=== PATIENT | female | born 1985 | race African-American/Black ===

== ENCOUNTER 2020-11-16 08:00 | Inpatient (IN) | payer OTHER, SELFPAY ==
[2020-11-16] VITALS (24 sets, daily range): BP systolic 98–127; BP diastolic 56–81; PULSE 72–93; RESP 16–20; TEMP 36.1–37.1; O2SAT 96–100; BMI 32.9
[2020-11-16 07:56] LABS: ROM Internal Control Test YES-OK TO RESULT pt. (Internal QC)
[2020-11-16 07:57] LABS: ROM Patient Test POSITIVE (Negative)
[2020-11-16] MEDS: Lactated Ringers 1,000 ML 999 ML IV (08:10)
[2020-11-16 08:36] LABS: Absolute Lymphocyte Count 1.34 X10^3/uL (0.83-4.51); Absolute Neutrophil Count 4.5 X10^3/uL (2.0-7.7); Basophil# 0.03 X10^3/uL; Basophil% 0.4 % (0-1); Eosinophil# 0.09 X10^3/uL; Eosinophils% 1.3 % (0-5); Hematocrit 30.1 % (37-47); Lymphocyte # 1.34 X10^3/ul (0.83-4.51); Mean Corp Hgb Conc 33.2 g/dL (32-36); Mean Corpuscular Hgb 30.1 pg (27.0-32.0); Mean Corpuscular Volume 90.7 fL (81-99); Mean Platelet Vol. 10.1 fl (6.2-12.0); Monocyte# 0.65 X10^3/uL; Monocyte% 9.7 % (0-10); NRBC Flagged by Analyzer 0 % (0-5); Neutrophil # 4.52 X10^3/uL (2.7-7.7); Neutrophil % 67.6 % (47-70); Platelet Count 243 K/mm3 (150-450); RBC Distribution Width CV 15.4 % (11.6-14.6); RBC Distribution Width SD 50.4 fl (35.1-43.9); Red Blood Count 3.32 M/mm3 (4.2-5.4); White Blood Count 6.7 K/mm3 (4.4-11.0)
[2020-11-16 08:45] LABS: Amphetamine Urine VISTA NEGATIVE (<1000 ng/mL); Barbiturate Urine VISTA NEGATIVE (< 200 ng/mL); Benzodiazepine Urine VISTA NEGATIVE (< 200 ng/mL); Cocaine Urine VISTA NEGATIVE (< 300 ng/mL); Ecstacy Urine VISTA NEGATIVE (< 500 ng/mL); Methadone Urine VISTA NEGATIVE (< 300 ng/mL); PCP Urine VISTA NEGATIVE (< 25 ng/mL); THC Urine VISTA NEGATIVE (< 50 ng/mL); Vista UDS pH Range 6
[2020-11-16] MEDS: Acetaminophen 500 MG Tablet 1000 MG PO ×3 (09:04→22:21)
[2020-11-16] MEDS: Sodium Citrate/Citric Acid 30 ML UDC PO (09:04)
[2020-11-16] MEDS: Cefazolin 2 GM in 0.9% Normal Saline 100 ML IV (09:15)
--- NOTE | 2020-11-16 09:36 | FALS_PTH ---
PATIENT: JANET GARCIA LOC: [facility] U#:[id number] AGE/SX: 35/F ROOM: [facility] RE11/16/[address]: Dr. Sara Briceno, MDDOB: 1985 BED: 1 DIS: 11/19/2020 SPEC #: [id number] RECD: 11/16/20 12:17 STATUS: STEPHEN AD #: [id number] CATA: 11/16/20 09:[address]: Sara Briceno DEPT: SURGICAL PATHOLOGY RECD BY: Julia Pizarro Tissues: Fallopian tube Procedures: Surgery Specimen Level II HEADER OPERATION: Tubal ligation PRE-OP DIAGNOSIS: Sterilization TISSUE SUBMITTED: Fallopian tubes, suture in right tube MICROSCOPIC DIAGNOSIS Right fallopian tube, salpingectomy: Complete segment of fallopian tube with no pathologic change. Left fallopian tube, salpingectomy: Complete segment of fallopian tube with no pathologic change. AM:mayo 11/17/2020 MICROSCOPIC DESCRIPTION Slides are reviewed. GROSS DESCRIPTION Received in fixative is one container labeled with the patient's name and designated bilateral fallopian tubes. The specimen consists of bilateral fallopian tubes including fimbrial ends. The right fallopian tubes with suture measures 7 cm in length and up to 0.6 cm in diameter and the left fallopian tube without suture measures 8 cm in length and 0.6 cm in diameter. Sections reveal unremarkable cut surfaces. Cut Out And Marking Machine Operator sections are submitted in two cassettes as follows: 1 - right fallopian tube, 2 - left fallopian tube. / SJ:mayo 11/16/20 TC:4 CPT: 77293 x2
--- NOTE | 2020-11-16 10:27 | OP.PCM_ITS ---
Assessment & Plan (1) Delivery by section: (2) Encounter for sterilization: Maternal Data Information Final JOHN: 11/24/20 Final JOHN Source: US <20 weeks Gestational age: 38.6 Details Operative Information Date of Procedure: 11/16/20 Pre-Operative Diagnosis: term gestation, SROM, previous c/s, desires sterilizaiton Post-Operative Diagnosis: same, live female infant Indications for : Repeat Elective Indications Narrative: SROM at home Classification: ADALBERTO Procedure Type: bilateral salpingectomy digital field service technician #1: Chiara Kumar Type of Anesthesia: Spinal Antibiotic Given: Ancef 2 grams IV x1 Drain: Frank to straight drain Estimated Blood Loss: 650 Fluids Replaced: 1100 Procedure Start Time: 09:32 Procedure Stop Time: 10:25 Time of Delivery: :36 Findings Description of Procedure: After informed consent was obtained the patient was taken to the operating room she was given spinal anesthesia. she was placed in the supine position. She was then prepped and draped in normal sterile fashion. Once spinal anesthesia was found to be adequate skin incision was made with a scalpel in a Pfannenstiel fashion. It was carried down to the underlying layer of the fascia. Fascia was then incised midline with scapel and extended laterally using curved koo. 2 straight Iker's were placed in the superior aspect of the fascial edge and the rectus muscles were dissected off sharply. Attention was then turned to the inferior aspect where again the fascial edge was grasped with 2 straight [place] clamps tented up and the rectus muscle dissected off sharply. At this time the rectus muscles were bluntly. Using blunt force the peritoneum was then entered. Metzenbaums were used to take down the rectus muscles inferiorly as well as the peritoneum. At this time the vesicouterine peritoneum was identified. Uterine incision was made in a low transverse fashion with the scalpel and then entered bluntly. Gentle opposing traction was placed to extend the uterine incision. The membranes were noted to be fluid clear. Infant's head was then brought to the uterine incision was delivered atraumatically followed by the rest 's body. At this time delayed cord clamping was performed mouth nose were suctioned. Infant was then handed to the waiting nursery team. The placenta was then removed with gentle traction. The uterus was removed from the intra-abdominal cavity is wrapped in a moist lap. it was cleared of all clots and debris using a moist lap. Ring clamps were placed on the uterine angles. #1 Vicryl suture was used in a running locked fashion for the first layer. second layer using #1 vicryl in figure of eight fashion. The Left adnexa and broad ligatment contined larged tortuous vessels with enlarged ovary but no demonstarted cyst. Right side appeared normal. Uterus was enlarged with palpable fibroids. At this time then the uterus was placed back into abdominal cavity uterine incision was evaluated and noted to be of good hemostasis. The tubes were grasped in an avascular area with the [place] and ligasure used to coagulate and ligated along mesosalpinx to removed both tubes completely. Great hemostasis was appreciated at this time the uterine incision was again evaluated good hemostasis was appreciated. VIPIN placed. The peritoneum was grasped with Kellys. Peritoneum and muscle were reapproximated using #2 Vicryl suture in a running fashion. Vipin placed over muscle. The fascia was then reapproximated using #1 PDS in a running fashion. Subcutaneous layer was evaluated and Bovie was used for any small oozing that was noted per #2-0 plain gut suture was then used to reapproximate the subcutaneous layer 4-0 monocryl was used to reapproximate the skin in a subcutaneous fashion. Dry sterile dressing was applied. Instrument lap needle count were correct ?2. Anticipated normal postoperative course for this patient . Presentation: Positive for Vertex Amniotic Membrane Rupture Type: Spontaneous Amniotic Fluid Description: Clear Placental Delivery Description: Manual Removal Placenta Disposition: [facility] Specimen(s) Sent to Pathology: none Cord Vessel Description: 3 Vessels Cord Entanglement: None Infant A Gender: Female (1 minute): 8 (5 minute): 9 Delayed Cord Clamping: Yes Complications Risks of Surgery Discussed w/Patient: Bleeding, Anesthesia Risks, Infection, Need for Future C-Sections, Permanency, Failure Rate of 1 to 2%, Injury to surrounding structure(s) including bowel and bladder and Availability of other non-permanent control options Complications: none Admit VTE Documentation VTE Present on Admission: Yes VTE Mechan Device Prophylaxis: SCD's VTE Pharm Prophylaxis Ordered: Yes
--- NOTE | 2020-11-16 10:35 | PCM.HP.OB ---
HPI - General General Date of Admission: 11/16/20 HPI Narrative JANET GARCIA, is a 35 F @ 38.6 weeks who presents with srom- scheduled cs tomorrow 11/17/20 Maternal Data Information Final JOHN: 11/24/20 Final JOHN Source: US <20 weeks Gestational age: 38.6 [facility] Medical History (Updated 11/16/20 @ 10:[address] Sara Briceno MD) ADD (attention deficit disorder) Anemia Anxiety Bipolar disorder (manic depression) Depression HSV (herpes simplex virus) infection Home Medications PNV no.[id number] [ Gummies] 2 tab PO DAILY 11/16/20 [History Last Taken 11/15/20 22:00 2 gummies] acyclovir 400 mg PO TID 11/16/20 [History Last Taken 11/16/20 05:00 400 mg] aspirin [Baby Aspirin] 81 mg PO DAILY 11/16/20 [History Last Taken 10/19/20] omeprazole magnesium [Prilosec OTC] 20 mg PO DAILY 11/16/20 [History Last Taken 11/16/20 05:00 20 mg] Allergy/AdvReac Type Severity Reaction Status Date / Time chocolate flavor Allergy Upset Verified 11/16/20 07:51 Stomach milk Allergy Upset Verified 11/16/20 07:50 Stomach Family History (Updated 11/16/20 @ 08:46 by Zara Peña) Father CVA (cerebral vascular accident) Mother Cancer Grandmother Cancer Grandmother Alcoholism Father Alcoholism Mother Alcoholism Surgical History (Updated 11/16/20 @ 10:[address] Sara Briceno MD) History of surgery Social History Smoking Status: Former smoker History Elective abortions Hx Para 1 Spontaneous abortions Hx # Term Pregnancies Ectopic pregnancies Hx # Pregnancies Multiple births # of living children Vital Signs Vital Signs Vital Signs: 11/16/20 07:39 11/16/20 07:40 11/16/20 08:53 Temperature 98.4 F 98.2 F Temperature Source Temporal Temporal Pulse Rate 80 93 Respiratory Rate 18 Blood Pressure 127/71 H 122/76 H Blood Pressure Mean 91 BP Systolic 127 BP Diastolic 71 Blood Pressure Source Monitor Blood Pressure Position Semi-Fowlers Blood Pressure Location Left Arm Pulse Ox 99 99 Oxygen Delivery Method Room Air 11/16/20 08:55 11/16/20 08:56 Temperature Temperature Source Pulse Rate 89 Respiratory Rate Blood Pressure 122/76 H Blood Pressure Mean BP Systolic 122 BP Diastolic 76 Blood Pressure Source Blood Pressure Position Blood Pressure Location Pulse Ox 100 Oxygen Delivery Method Weight Weight: 84.3 kg Body Mass Index (BMI) 32.9 Physical Exam Const alert and oriented x3 General Appearance: cooperative HEENT normocephalic GI GI Narrative: Gravid, non tender to palpation. OB / External & Speculum: external exam normal Extremity normal to inspection Skin no rashes or lesions noted Neuro oriented x3 and CN's II-XII intact bilaterally Psych Appearance: grossly normal Labs Labs Labs: Blood Type A POSITIVE Antibody Screen NEGATIVE Hct 30.1 % (37-47) L Hgb 10.0 g/dL (12.0-15.0) L Assessment & Plan (1) PROM (premature rupture of membranes): (2) 38 weeks gestation of : (3) History of delivery: PLAN: admit to L&D plan for repeat cs today with bilateral salpingectomy OR staff notified
[2020-11-16] MEDS: Oxytocin 30 units/NS 500 ml 30 UNITS/500 ML IV.SOLN 167 UNITS IV (11:05)
[2020-11-16] MEDS: Ketorolac 30 MG/ML Syringe IM ×3 (11:45→23:37)
[2020-11-16 12:18] LABS: Pathology Specimen OB SEE PATHOLOGY REPORT
[2020-11-16] MEDS: Ondansetron 4 MG/2 ML Vial IV (12:55)
[2020-11-16] MEDS: Lactated Ringers 1,000 ML 100 ML IV (14:15)
--- NOTE | 2020-11-16 16:23 | CASEMGMT ---
Social Work Labor and Delivery Unit Consult received for maternal history of marijuana use, mental health history and social history. MOB delivered infant today via section. Will plan to see MOB for consult on 11/17/2020. -ELISEO Garduno, DEFENSIVE SECONDARY COACH
--- NOTE | 2020-11-16 16:33 | NURSING ---
1600- sleeping well, not disturbed. no s/sx of distress
[2020-11-16] MEDS: Enoxaparin 40 MG/0.4 ML Syringe SC (22:21)
[2020-11-16] MEDS: 0.9% Saline Lock 10 ML Syringe IV (23:38)
[2020-11-17] MEDS: Acetaminophen 500 MG Tablet 1000 MG PO ×4 (03:56→21:45)
[2020-11-17 03:57] VITALS: BP 107/46; PULSE 77; RESP 18; TEMP 36.7; O2SAT 98
[2020-11-17] MEDS: 0.9% Saline Lock 10 ML Syringe IV (06:18)
[2020-11-17] MEDS: Ketorolac 30 MG/ML Syringe IM (06:18)
[2020-11-17 06:42] LABS: Hematocrit 27.5 % (37-47); Mean Corp Hgb Conc 32.7 g/dL (32-36); Mean Corpuscular Hgb 30.2 pg (27.0-32.0); Mean Corpuscular Volume 92.3 fL (81-99); Mean Platelet Vol. 9.1 fl (6.2-12.0); Platelet Count 192 K/mm3 (150-450); RBC Distribution Width CV 15.3 % (11.6-14.6); RBC Distribution Width SD 51.1 fl (35.1-43.9); Red Blood Count 2.98 M/mm3 (4.2-5.4); White Blood Count 8.3 K/mm3 (4.4-11.0)
[2020-11-17 10:30] VITALS: BP 106/57; PULSE 92; RESP 18; TEMP 36.9; O2SAT 97
[2020-11-17] MEDS: Senna/Docusate Sodium 1 Tablet PO (11:07)
[2020-11-17] MEDS: Ibuprofen 600 MG Tablet PO ×3 (12:16→22:51)
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
--- NOTE | 2020-11-17 13:29 | PCM.PN.OB ---
Subjective Subjective She reports some abdominal discomfort. Patient is not passing much gas. No BM in over 2 days. Objective Data Objective Data Vital Signs: Vital Signs Temp Pulse Resp BP Pulse Ox 98.5 F 92 18 106/57 L 97 11/17/20 10:30 11/17/20 10:30 11/17/20 10:30 11/17/20 10:30 11/17/20 10:30 Oxygen Delivery Method Room Air Weight: 185 lb 13.595 oz Body Mass Index (BMI) 32.9 Intake & Output: Intake and Output for Last 24 Hours 11/15/20 11/16/20 11/17/20 23:59 23:59 23:59 Intake Total 5180.72 / 5180.72 Output Total 2620 / 2620 1200 / 1200 Balance 2560.72 / 2560.72 -1200 / -1200 Lab / Micro Data Result Diagrams: 11/17/20 06:30 Labs: Laboratory Results - last 24 hr 11/17/20 06:30: WBC 8.3, RBC 2.98 L, Hgb 9.0 L, Hct 27.5 L, MCV 92.3, MCH 30.2, MCHC 32.7, RDW Std Deviation 51.1 H, RDW Coeff of Patrick 15.3 H, Plt Count 192, MPV 9.1 Physical Exam Const alert, oriented x3 and no apparent distress HEENT normocephalic GI soft to palpation GI Narrative: softly distended with minimal tenderness, no rebound or guarding fundus firm, mid & below umbilicus Incision - bandage c/d/i Extremity normal to inspection and no calf tenderness Assessment & Plan (1) Delivery by section: COMMENT: POD#1 PLAN: Heme - HDS. Sickle cell trait with iron deficiency anemia in . Resume iron supplementation. GI - ADAT. Encouraged ambulation to help with flatus. Miralax ordered for constipation. - adequate UOP IF - AF, no signs infection Routine care
[2020-11-17 15:40] VITALS: BP 110/65; PULSE 92; RESP 18; TEMP 36.9; O2SAT 97
--- NOTE | 2020-11-17 17:03 | CASEMGMT ---
Social Work Labor and Delivery Unit Per the mother of baby (MOB) verbal permission this inspector automatic typewriter called [facility] in [place] at [phone]. Carolyne Gonzales is the therapist MOB has been seen. Requested to get MOB an appointment and this inspector automatic typewriter was sent to Carolyne's voicemail due to the patient being in transition. Message left requesting a call back with a follow-up for this patient. Called [facility] children services at [phone]. Spoke with Shobha in the intake department. 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 Additional risk factors including maternal mental health and reports of MOB /intended father to baby having history of THC use. Reported strengths for this family. Brief maternal and histories provided. Children services aware of discharge either Friday or Friday. When reports no reason to hold the family regarding discharge. No callback from [facility] with an appointment for this patient. Presented to MOB room to discuss and complete a crisis safety plan. There are no current thoughts plans or intent regarding suicide at this time however due to patient's history, crisis safety plan being done. Rojas, the MOB and intended father to the baby awake and sitting on the bedside couch. MOB agreeable to having discussion with Rojas present. Completed safety plan with MOB input. Rojas provided input with MOB request. Rojas presented as supportive and acknowledging the support systems that MOB identified as being very helpful to the MOB. Copy of crisis safety plan placed on the MOB chart and original returned back to the MOB. Again, no voiced intent for suicide at this time is future oriented regarding wanting to be present and care for her children. Also places a connection with the therapist at [facility] and desire to continue with counseling. Educated MOB that Carolyne has not called this inspector automatic typewriter back with an appointment. MOB verbally agreed that she can call [facility] herself on Friday and get an appointment. Rojas inquired about potential children services involvement as MOB had mentioned this to Rojas. [facility] [place] this inspector automatic typewriter permission to speak to Rojas freely. Educated Rojas to the reason for her children services referral. Answered Rojas's questions and allowed opportunity for both parents to ask questions as needed. Both ERENDIRA and Rojas were appropriate, pleasant, and cooperative; willing to engage in respectful conversation with this inspector automatic typewriter. MOB affect brighter this afternoon as compared to first visit with this inspector automatic typewriter today. No other services requested at this time. Noted that infant's urine drug screen is negative. Plan: MOB and infant will discharge home when ready for discharge. 1. MOB has been provided with resource packet for [facility] and a mood and anxiety disorder packet. 2. Crisis safety plan has been created and a copy has been placed on the MOB chart. 3. MOB reports intent to follow-up with [facility] on 11/20/2020 to secure her own mental health appointment. 4. Referral has been made to [facility] services. MOB and and Rojas both aware of referral. Per [facility] no reason to hold the family's discharge. 5. Will monitor for meconium drug screen results and make additional referrals as indicated. -ELISEO Garduno, [employer] *Information documented generated via the [employer] system.*
[2020-11-17] MEDS: oxyCODONE 5 MG Tablet PO ×2 (17:09→22:50)
[2020-11-17] MEDS: Polyethylene Glycol 3350 17 GM PACKET PO (17:57)
[2020-11-17 21:43] VITALS: BP 119/65; PULSE 90; RESP 18; O2SAT 98
[2020-11-17] MEDS: Enoxaparin 40 MG/0.4 ML Syringe SC (22:50)
[2020-11-18 00:19] VITALS: BP 109/60; PULSE 91; RESP 18; TEMP 36.9; O2SAT 96
[2020-11-18 03:29] VITALS: BP 100/53; PULSE 87; RESP 18
[2020-11-18] MEDS: Acetaminophen 500 MG Tablet 1000 MG PO ×4 (03:32→23:08)
[2020-11-18] MEDS: Ibuprofen 600 MG Tablet PO ×4 (06:21→23:07)
[2020-11-18 07:30] VITALS: BP 108/53; PULSE 82; RESP 16; TEMP 36.8; O2SAT 98
[2020-11-18] MEDS: Senna/Docusate Sodium 1 Tablet PO (08:54)
[2020-11-18] MEDS: oxyCODONE 5 MG Tablet PO ×2 (08:54→21:25)
[2020-11-18] MEDS: Polyethylene Glycol 3350 17 GM PACKET PO (10:57)
--- NOTE | 2020-11-18 11:42 | PCM.PN.OB ---
Subjective Subjective Pain better today. Passing more flatus. No BM yet. Objective Data Objective Data Vital Signs: Vital Signs Temp Pulse Resp BP Pulse Ox 98.2 F 82 16 108/53 L 98 11/18/20 07:30 11/18/20 07:30 11/18/20 07:30 11/18/20 07:30 11/18/20 07:30 Oxygen Delivery Method Room Air Weight: 185 lb 13.595 oz Body Mass Index (BMI) 32.9 Intake & Output: Intake and Output for Last 24 Hours 11/16/20 11/17/20 11/18/20 23:59 23:59 23:59 Intake Total 5180.72 / 5180.72 Output Total 2620 / 2620 1200 / 1200 Balance 2560.72 / 2560.72 -1200 / -1200 Lab / Micro Data Result Diagrams: 11/17/20 06:30 Physical Exam Const alert, oriented x3 and no apparent distress HEENT normocephalic GI soft to palpation GI Narrative: softly distended with minimal tenderness fundus firm, mid & below umbilicus Incision - bandage c/d/i Extremity normal to inspection and no calf tenderness Assessment & Plan (1) Delivery by section: COMMENT: POD#2 PLAN: Heme - HDS, continue iron GI - miralax again today & encouraged ambulation to pass more flatus & have a BM Routine care & anticipate discharge tomorrow
[2020-11-18 13:12] VITALS: BP 118/65; PULSE 78; RESP 16; TEMP 36.7; O2SAT 97
[2020-11-18] MEDS: Enoxaparin 40 MG/0.4 ML Syringe SC (21:26)
[2020-11-18 21:28] VITALS: BP 126/60; PULSE 87; RESP 18; TEMP 36.9
[2020-11-19 03:05] VITALS: BP 119/68; PULSE 78; RESP 18
[2020-11-19] MEDS: Acetaminophen 500 MG Tablet 1000 MG PO ×2 (05:09→11:34)
[2020-11-19] MEDS: Ibuprofen 600 MG Tablet PO ×2 (05:09→11:34)
[2020-11-19 07:57] VITALS: BP 107/70; PULSE 82; RESP 16; TEMP 36.7; O2SAT 98
[2020-11-19] MEDS: Senna/Docusate Sodium 1 Tablet PO (11:34)
[2020-11-19 11:36] VITALS: BP 117/66; PULSE 80; RESP 16; TEMP 37; O2SAT 97
--- NOTE | 2020-11-19 12:00 | PCM.PN.OB ---
Subjective Subjective Pain is controlled. Passing more flatus but no BM yet. Objective Data Objective Data Vital Signs: Vital Signs Temp Pulse Resp BP Pulse Ox 98.6 F 80 16 117/66 97 11/19/20 11:36 11/19/20 11:36 11/19/20 11:36 11/19/20 11:36 11/19/20 11:36 Oxygen Delivery Method Room Air Weight: 185 lb 13.595 oz Body Mass Index (BMI) 32.9 Intake & Output: Intake and Output for Last 24 Hours 11/17/20 11/18/20 11/19/20 23:59 23:59 23:59 Output Total 1200 / 1200 Balance -1200 / -1200 Lab / Micro Data Result Diagrams: 11/17/20 06:30 Physical Exam Const alert, oriented x3 and no apparent distress HEENT normocephalic GI soft to palpation, non-tender and non-distended GI Narrative: fundus firm, mid & below umbilicus Incision - bandage c/d/i Extremity normal to inspection and no calf tenderness Assessment & Plan (1) Delivery by section: COMMENT: POD#3 PLAN: D/c to home GI - advised on miralax for constipation Heme - continue iron
--- NOTE | 2020-11-19 12:02 | PCM.DC.SUM ---
Providers Date of Admission: 11/16/20 Reason For Visit: REPEAT C SECTION Diagnosis Discharge Diagnosis (1) Delivery by section: Status: Acute (2) History of delivery: Status: Acute Code(s): Z98.891 - History of uterine scar from previous surgery Medications at Discharge Home Medications Gummies 2 tab PO DAILY 11/16/20 acyclovir 400 mg PO TID 11/16/20 omeprazole magnesium [Prilosec OTC] 20 mg PO DAILY 11/16/20 acetaminophen 1,000 mg PO Q6H #0 tab 11/19/20 ibuprofen 600 mg PO Q6H #0 tab 11/19/20 oxycodone 5 mg PO Q8H PRN 4 Days #10 cap 11/19/20 polyethylene glycol 3350 17 g PO DAILY #0 ea 11/19/20 Hospital Course Operations section Procedures None Summary of Care Provided Hospital Course: Heme - HDS. Sickle cell trait with iron deficiency anemia in . Resumed iron supplementation. GI - Patient tolerating regular diet & passing flatus. Miralax for constipation. - adequate UOP IF - AF, no signs infection D/c to [facility] on POD#3 Admitted from 11/16/20 to 11/19/20 Weight / BMI Weight Weight: 185 lb 13.595 oz Body Mass Index (BMI) 32.9 ABG / Lab / Microbiology Data Result Diagrams: 11/17/20 06:30 D/C Instructions Discharge Diet: No restrictions Discharge Activity: May Shower May resume sexual activity in: 6 weeks Weight Bearing Status: Weight bearing as tolerated Call your doctor if your incision/area has: Continuous Slow Oozing, Sudden Increased Bleeding, Increased Pain/ Swelling, Increased Redness, Foul Smelling Discharge and Swelling at the incision site Call your doctor if you observe: Fever of 101 or Higher, Coldness, Increased Pain, Change in Color, Inability to urinate, Inability to have a bowel movement, Using more than 1 pad per hour, Shortness of breath, Dizziness, Fainting spells, Chest pain, Increased palpitations (irregular heartbeat), Calf discomfort and Uncontrolled pain Suture Line Care: Avoid Pulling/Pushing and Avoid Pinching/Bending Remove Dressing in: 1 week Cleanse incision/area with: Soap & Water Please Follow Up With: Eric Denny MD When: Follow up in 2 and 6 weeks for visits. Meaningful Use Info Meaningful Use Diagnoses (Choose all that apply): None applicable Discharge Plan Admission Admit Date/Time: 11/16/20 08:00 Primary Reason for Your Visit: section with bilateral salpingectomy for tubal sterilization Attending Provider: Sara Briceno Discharge Orders/Prescriptions Prescriptions: New acetaminophen 500 mg Tablet 1,000 mg PO Q6H Qty: 0 RF: 0 polyethylene glycol 3350 17 gram Powder In Packet 17 g PO DAILY Qty: 0 RF: 0 ibuprofen 600 mg Tablet 600 mg PO Q6H Qty: 0 RF: 0 oxycodone 5 mg capsule 5 mg PO Q8H PRN (Reason: pain) 4 Days Qty: 10 RF: 0 Continued acyclovir 400 mg Tablet 400 mg PO TID RF: 0 omeprazole magnesium [Prilosec OTC] 20 mg Tablet,Delayed Release (Dr/Ec) 20 mg PO DAILY RF: 0 Gummies 400 mcg-35 mg- 25 mg-5 mg Tablet,Chewable 2 tab PO DAILY RF: 0 Discontinued aspirin [Baby Aspirin] 81 mg Tablet,Chewable 81 mg PO DAILY RF: 0 Disposition Disposition (needs filled in before D/C Order can be placed): Home, Self Care
--- NOTE | 2021-01-15 12:35 | CASEMGMT ---
Social Work Labor and Delivery Meconium drug screen results back for baby, refer to baby's chart which is linked to this visit number for details of findings. Call made to [facility] at [phone] and spoke with Mary Lou of new findings. Information will be added to original report. No other services requested or indicated. -ELISEO Garduno, CARE SPECIALIST
== END 2020-11-19 12:55 | disposition home or self-care (01) | DRG 785 ==
LOC: WPOUT 08:05 → WP 09:43
PROVIDERS: Admitting Provider Obstetrics & Gynecology; Referring Provider Obstetrics & Gynecology; Visit Provider Obstetrics & Gynecology
DX: O42.92 Full-term premature rupture of membranes, unspecified as to length of time between rupture and onset of labor (principal); O65.5 Obstructed labor due to abnormality of maternal pelvic organs; O34.211 Maternal care for low transverse scar from previous cesarean delivery; Z3A.38 38 weeks gestation of pregnancy; Z37.0 Single live birth; Z30.2 Encounter for sterilization; D57.3 Sickle-cell trait; D50.9 Iron deficiency anemia, unspecified; K59.00 Constipation, unspecified; O99.02 Anemia complicating childbirth; Z79.82 Long term (current) use of aspirin; Z81.1 Family history of alcohol abuse and dependence; Z82.3 Family history of stroke; Z87.891 Personal history of nicotine dependence; Z91.011 Allergy to milk products
CPT/HCPCS: 59050; 80307; 84112; 85025; 85027; 86850; 86900; 86901; 86920; 86922; 88302; 99218; J7120; A4216; G0378; J2405

== ENCOUNTER 2022-05-27 11:31 | Emergency (ER) | payer OTHER, SELFPAY ==
[2022-05-27 11:34] VITALS: BP 114/76; PULSE 112; RESP 17; TEMP 37.3; O2SAT 99; BMI 30.3
--- NOTE | 2022-05-27 12:07 | RAD_ITS ---
INDICATION: chest pain, cough, shortness of breath EXAMINATION/TECHNIQUE: X-RAY - XR Chest 2 Views COMPARISON: None. FINDINGS: LINES/DEVICES: None. LUNGS: No consolidation, edema or effusion. No pneumothorax. MEDIASTINUM AND CARDIOVASCULAR STRUCTURES: Cardiac silhouette not enlarged. Central airways and mediastinal contour are unremarkable. BONES AND SOFT TISSUES: Unremarkable. RAD/Chest PA and Lateral IMPRESSION: No radiographic evidence of acute cardiopulmonary disease. Electronically Signed: Natasha Carney MD at 13:01 EST ,
--- NOTE | 2022-05-27 12:09 | EDS_ITS ---
HPI History of Present Illness Chief Complaint: Nausea/Vomiting/Diarrhea Informant: patient and friend Onset/Context/Timing Onset: Days (3) Context: Gradual Onset Timing: Continuous Quality: achy, malaise Location: all over Current Severity: Severe Maximum Severity: Severe Worsened by: nothing Relieved by: nothing Associated Symptoms Associated Symptoms ED: cough Narrative Narrative: Patient states she started having fevers 3 days ago followed by vomiting, which is making her chest hurt, she is coughing which makes her chest hurt worse, and she has developed some supraumbilical abdominal discomfort that is more like soreness. She has a child with similar symptoms for similar period of time. That child was seen at [facility] today and had swabs for COVID and influenza but those are still pending. Patient feels awful, she has been fully vaccinated against COVID, she works at a daycare. She has been vomiting a lot and concerned she may be dehydrated. Last fever she checked was 101.x. PFSH PFSH Medical History ADD (attention deficit disorder) Anemia Anxiety Bipolar disorder (manic depression) Depression Encounter for sterilization HSV (herpes simplex virus) infection Home Medications ondansetron 4 mg disintegrating tablet 8 mg PO Q8H PRN PRN Nausea #20 tabs 05/27/22 [Rx Last Taken Unknown] Allergy/AdvReac Type Severity Reaction Status Date / Time chocolate flavor Allergy Upset Verified 05/27/22 11:32 Stomach milk Allergy Upset Verified 05/27/22 11:32 Stomach Family History (Updated 11/16/20 @ 08:46 by Zara Peña) Father CVA (cerebral vascular accident) Mother Cancer Grandmother Cancer Grandmother Alcoholism Father Alcoholism Mother Alcoholism Surgical History Delivery by section History of surgery Social History Smoking Status: Former smoker ROS ROS ED Constitutional Constitutional ED: Reports body ache(s), chills, fatigue, fever(s), headache(s) and malaise Eyes Eyes: Denies change in vision or diplopia ENT ENT ED: Reports headache(s), nasal congestion, rhinorrhea and sore throat Cardiovascular Cardiovascular: Reports chest pain; Denies orthopnea or palpitations Respiratory/Chest Respiratory/Chest: Reports cough and dyspnea; Denies orthopnea Gastrointestinal Gastrointestinal: Reports abdominal pain, diarrhea, nausea and vomiting Genitourinary Genitourinary ED: Denies dysuria or hematuria Musculoskeletal Musculoskeletal: Reports back pain and myalgias; Denies neck pain Integumentary Denies abscess or rash Neurologic Neurologic: Reports headache(s); Denies paresthesias or weakness Psychiatric Psychiatric: Denies anxiety or suicidal thoughts EXAM Physical Exam Const Vital Signs: 05/27/22 11:34 Temperature 99.2 F H Temperature Source Temporal Pulse Rate 112 H Respiratory Rate 17 Blood Pressure 114/76 Blood Pressure Mean 88 Pulse Ox 99 Oxygen Delivery Method Room Air Positive well nourished and well developed Constitutional Narrative: Malaised-appearing, no distress General Appearance ED: well developed and NAD HEENT Reports moist mucous membranes HEENT Narrative: POP clear, symmetric; no exudates normocephalic and atraumatic Eyes PERRL and EOMs intact bilaterally Neck full ROM, no lymphadenopathy and supple Chest Wall inspection of chest normal Chest Narrative: mild bilat parasternal tenderness, no crepitance Resp normal respiratory effort and clear to auscultation bilaterally Effort and Inspection: able to speak in complete sentences Cardio regular rate, regular rhythm and no murmurs Rate: Negative for tachycardic GI non-tender and non-distended Auscultation: normoactive bowel sounds Palpation: soft Back/Spine no CVA tenderness General Back: other FROM Extremity normal to inspection and no calf tenderness General Extremety ED: Negative for edema, pulses abnormal or tenderness General Extremity: Negative for edema or pulses abnormal Neuro oriented x3, CN's II-XII intact bilaterally and no sensory deficits noted Sensorium / Orientation: awake and alert Motor Exam: strength 5/5 throughout Psych mental status grossly normal Skin no rashes or lesions noted and no wounds MDM MDM MDM Narrative Medical decision making narrative: Given patient's symptoms chest x-ray obtained, on my interpretation 2 views negative for any acute. Radiology in agreement. Her lab testing is all normal except for leukopenia and since her COVID and influenza swabs are negative, we do see leukopenia with COVID so I sent an outpatient PCR. She has not hypoxic, she is doing well clinically, she just has uncomfortable symptoms, I do not think the chest discomfort is cardiac. I gave her Toradol which did help some with the aches, pains, and headache, in addition to IV fluids and Zofran. She was tolerating oral fluids. She took a GI cocktail, did not take her chest discomfort away so that I gave her albuterol treatment to see if that would help it. Lab Data Attestation: I reviewed the patient's lab results. Labs: Laboratory Results - last 24 hr 05/27/22 05/27/22 12:23 12:23 WBC 3.5 L RBC 3.81 L Hgb 11.5 L Hct 35.1 L MCV 92.1 MCH 30.2 MCHC 32.8 RDW Std Deviation 43.6 RDW Coeff of Patrick 12.9 Plt Count 263 MPV 9.9 Immature Gran % (Auto) 0.600 Neut % (Auto) 51.2 Lymph % (Auto) 33.5 [place] % (Auto) 13.2 H Eos % (Auto) 0.9 Baso % (Auto) 0.6 Absolute Neuts (auto) 1.8 L Absolute Lymphs (auto) 1.17 Nucleated RBC % 0 Sodium 138 Potassium 3.8 Chloride 105 Carbon Dioxide 23.0 Anion Gap 10 BUN 11 Creatinine 0.91 Estim Creat Clear Calc 67.60 Est GFR (MDRD) Af Amer 90 Est GFR (MDRD) Non-Af 74 BUN/Creatinine Ratio 12.1 Glucose 75 Calcium 8.4 L Radiography Diagnostic Testing: Clinical Impression(s) from Imaging Studies Chest X-Ray 05/27/22 12:07 IMPRESSION: No radiographic evidence of acute cardiopulmonary disease. Electronically Signed: Natasha Carney MD at 13:01 EST , Discharge Plan Triage Chief Complaint: Nausea/Vomiting/Diarrhea ED Provider: Dominick Bowie Dx/Rx/DC Orders Clinical Impression: Acute viral syndrome Instructions: ED Diet Vomiting Diarrhea, ED Viral Syndrome (Adult) Prescriptions: New ondansetron [ondansetron] 4 mg tablet,disintegrating 8 mg PO Q8H PRN PRN (Reason: Nausea) Qty: 20 0RF Primary Care Provider: Piter Noble Referrals: Piter Noble MD [Primary Care Provider] - 1 Week if not improving Disposition Disposition: Home, Self Care
[2022-05-27] MEDS: 0.9% Normal Saline 1,000 ML 999 ML IV (12:25)
[2022-05-27] MEDS: Ondansetron 4 MG/2 ML Vial IV (12:25)
[2022-05-27] MEDS: Ketorolac 30 MG/ML Syringe IV (12:25)
[2022-05-27 12:33] LABS: Absolute Lymphocyte Count 1.17 X10^3/uL (0.83-4.51); Absolute Neutrophil Count 1.8 X10^3/uL (2.0-7.7); Basophil# 0.02 X10^3/uL; Basophil% 0.6 % (0-1); Eosinophil# 0.03 X10^3/uL; Eosinophils% 0.9 % (0-5); Hematocrit 35.1 % (37-47); Hemoglobin 11.5 g/dL (12.0-15.0); Lymphocyte # 1.17 X10^3/ul (0.83-4.51); Lymphocyte % 33.5 % (19-41); Mean Corp Hgb Conc 32.8 g/dL (32-36); Mean Corpuscular Hgb 30.2 pg (27.0-32.0); Mean Corpuscular Volume 92.1 fL (81-99); Mean Platelet Vol. 9.9 fl (6.2-12.0); Monocyte# 0.46 X10^3/uL; Monocyte% 13.2 % (0-10); NRBC Flagged by Analyzer 0 % (0-5); Neutrophil # 1.79 X10^3/uL (2.7-7.7); Neutrophil % 51.2 % (47-70); Platelet Count 263 K/mm3 (150-450); RBC Distribution Width CV 12.9 % (11.6-14.6); RBC Distribution Width SD 43.6 fl (35.1-43.9); Red Blood Count 3.81 M/mm3 (4.2-5.4); White Blood Count 3.5 K/mm3 (4.4-11.0)
[2022-05-27 12:48] LABS: Anion Gap 10 (5-15); BUN 11 mg/dL (7-18); BUN/Creat Ratio 12.1 RATIO (10-20); Calcium,Total 8.4 mg/dL (8.5-10.1); Chloride 105 mmol/L (98-107); Creatinine, Serum 0.91 mg/dL (0.55-1.02); EST Glomerular Filtration Rate 74 mL/min (>60); Est Glom Filt Rate - Afr Amer 90 mL/min (>60); Glucose 75 mg/dL (74-106); Potassium 3.8 mmol/L (3.5-5.1); Sodium Level 138 mmol/L (136-145)
[2022-05-27] MEDS: Mag Hydrox/Al Hydrox/Simeth 30 ML UDC PO (13:28)
[2022-05-27 14:52] VITALS: PULSE 79; RESP 16
[2022-05-27] MEDS: Albuterol 2.5 MG/3 ML VIAL.NEB. INHALATION (14:52)
[2022-05-27 15:49] VITALS: PULSE 104; RESP 16; O2SAT 98
== END 2022-05-27 15:54 | disposition home or self-care (01) ==
PROVIDERS: Emergency Provider Emergency Medicine; PCP Internal Medicine; Visit Provider Emergency Medicine
DX: B34.9 Viral infection, unspecified (principal); F31.9 Bipolar disorder, unspecified; R11.2 Nausea with vomiting, unspecified; R51.9 Headache, unspecified; R19.7 Diarrhea, unspecified; Z87.891 Personal history of nicotine dependence; F41.9 Anxiety disorder, unspecified
CPT/HCPCS: 71046; 80048; 85025; 87428; 87635; 94640; 96361; 96374; 96375; 99283; J7030; A4216; J2405; U0003; U0005

== ENCOUNTER 2023-09-03 18:06 | Emergency (ER) | payer OTHER, SELFPAY ==
[2023-09-03 18:09] VITALS: BP 116/65; PULSE 91; RESP 18; TEMP 36.4; O2SAT 98; BMI 28.8
[2023-09-03 20:08] VITALS: BP 109/74; PULSE 73; RESP 16; O2SAT 98
--- NOTE | 2023-09-03 20:40 | EKG12_ITS ---
Test Reason : CP Blood Pressure : / mmHG Vent. Rate : 086 BPM Atrial Rate : 086 BPM P-R Int : 126 ms QRS Dur : 082 ms QT Int : 374 ms P-R-T Axes : 049 069 042 degrees QTc Int : 447 ms Normal sinus rhythm Normal ECG Confirmed by OPHELIA LLOYD, JAILENE ([id number]), manager editorial VITOR GARCIA ([id number]) on 09/04/2023 11:36:16 AM Referred By: Confirmed By:JAILENE JACINTO MD
--- NOTE | 2023-09-03 21:38 | CT_ITS ---
EXAM: CT ABDOMEN AND PELVIS WITH INTRAVENOUS CONTRAST CLINICAL INDICATION: right inguinial mass TECHNIQUE: Helically acquired images were obtained of the abdomen and pelvis with intravenous contrast. This CT exam was performed using one or more of the following dose reduction techniques: automated exposure control, adjustment of the mA and/or kV according to patient size, and/or use of iterative reconstruction technique. CONTRAST: IV 100mL Isovue-300 RADIATION DOSE: CTDIvol = 12.5 mGy, DLP = 684.43 mGy-cm COMPARISON: No relevant prior studies available. FINDINGS: LOWER THORAX: Unremarkable. Lung bases are clear. No cardiomegaly. No significant pericardial effusion. ABDOMEN: LIVER: Unremarkable. Homogeneous. No focal mass. GALLBLADDER AND BILE DUCTS: Unremarkable. No calcified gallstones. No gallbladder distention or wall edema. No intra- or extrahepatic biliary ductal dilation. PANCREAS: Unremarkable. No focal cystic or solid mass. SPLEEN: Unremarkable. Normal size without focal cystic or solid mass. ADRENALS: Unremarkable. No nodules. KIDNEYS AND URETERS: Unremarkable. Normal renal size and position. No hydronephrosis. STOMACH AND BOWEL: Unremarkable. No stomach or bowel distention. No focal inflammatory change. PELVIS: APPENDIX: The appendix is normal. BLADDER: Unremarkable. REPRODUCTIVE: Uterine fibroid measuring up to 5 cm. ABDOMEN and PELVIS: INTRAPERITONEAL SPACE: Unremarkable. No ascites or other fluid collection. No free air. BONES/JOINTS: Unremarkable. No suspicious lytic or blastic abnormality. SOFT TISSUES: Unremarkable. No discrete abdominal or pelvic wall hernia. VASCULATURE: Unremarkable. Abdominal aorta is non-dilated. LYMPH NODES: Enlarged right inguinal lymph node measuring 1.6 cm in short axis dimension. CT/Abdomen/Pelvis W IV Cont ONLY IMPRESSION: 1. Enlarged right inguinal lymph node measuring 1.6 cm in short axis dimension. No other adenopathy identified. Findings could be reactive to an infectious/inflammatory process, but a neoplastic process is not excluded. Correlate with clinical presentation and consider interval follow-up exam versus tissue diagnosis. 2. Intramural uterine fibroid measuring up to 5 cm. Electronically Signed: Geovani Busby MD at 23:15 EDT ,
--- NOTE | 2023-09-03 21:40 | EX.ED.DYSGE1 ---
HPI History of Present Illness Chief Complaint: General Illness Narrative Narrative: 37-year-old female presenting for evaluation of multiple complaints which have been occurring over multiple months. Patient states she does not take care of herself because she takes care of her , goes to school and takes care of her kids. Patient states she used to see Dr. Noble but he was a very busy doctor and she missed follow-up so he discharged her from the practice. Patient states she does have a history of anxiety and has never had anything treated because she does not take care of herself. Patient has never been on any medications for this. She states that she went to establish with Aye Martinez for these multiple complaints and she showed her the lump that she has in her right inguinal area which has been present for about a couple of weeks. She states that they wanted to overlook this because she was concerned more about the respiratory complaints. They sent her to the emergency room because she started breathing heavily and she was short of breath. After asking the patient if she has a history of respiratory problems she states that she does and when asked to define them she is does not have any history of this other than to say that she just recently met her mother who has history of similar problems with shortness of breath. Patient does have an albuterol inhaler which she has previously used but she is never been diagnosed with she states he is having intermittent chest pain over the course of the month, anxiety, shortness of breath. She also reports that she has intermittent fevers over the course of the whole month. On and off from week to week with a Tmax of 101 ?F. She states her hair has been falling down and her weight loss is about 20 pounds in 2 weeks. She states she initially had some blood in her stool which is resolved. She states that she is not on any blood thinners. Aside from all the symptoms that she has had she had a recent tattoo to the right leg which she states they did not change the medial to it and made her very ill and she was sick for 2 weeks. [facility] Medical History ADD (attention deficit disorder) Anemia Anxiety Bipolar disorder (manic depression) Depression Encounter for sterilization HSV (herpes simplex virus) infection Home Medications ondansetron 4 mg disintegrating tablet 8 mg (2 x 4 mg) PO Q8H PRN PRN Nausea #20 tabs 05/27/22 [Rx Last Taken Unknown] Allergy/AdvReac Type Severity Reaction Status Date / Time chocolate flavor Allergy Upset Verified 09/03/23 18:09 Stomach milk Allergy Upset Verified 09/03/23 18:09 Stomach Family History (Updated 11/16/20 @ 08:46 by Zara Peña) Father CVA (cerebral vascular accident) Mother Cancer Grandmother Cancer Grandmother Alcoholism Father Alcoholism Mother Alcoholism Surgical History Delivery by section History of surgery Social History Smoking Status: Current every day smoker tobacco type: cigarettes EXAM Physical Exam Const Vital Signs: 09/03/23 18:09 09/03/23 19:08 09/03/23 20:08 Temperature 97.6 F L Temperature Source Temporal Pulse Rate 91 73 Respiratory Rate 18 16 Respiratory Effort Short of Breath Respiratory Pattern Normal Blood Pressure 116/65 109/74 Blood Pressure Mean 82 85 Pulse Ox 98 98 Oxygen Delivery Method Room Air Room Air 09/03/23 22:00 Temperature Temperature Source Pulse Rate 97 Respiratory Rate 16 Respiratory Effort Respiratory Pattern Blood Pressure 124/84 H Blood Pressure Mean 97 Pulse Ox 100 Oxygen Delivery Method Room Air MDM MDM MDM Narrative Medical decision making narrative: Patient presenting with multiple complaints. Differential includes anxiety, ACS, dehydration, anemia, electrolyte normalities, inguinal lymphadenopathy versus hernia, hypothyroidism, . CBC was obtained to assess white blood cell count, hemoglobin, platelets. CMP to assess liver function, renal function electrolytes, glucose. High-sensitivity troponin EKG to assess for ischemia/pending. Serum hCG to assess for . TSH to assess for hyper or hypothyroidism. Chest x-ray was obtained to rule out pneumonia or other acute abnormality. CT of the abdomen pelvis was also obtained. Ultimately her CBC shows normal white blood cell count of 6.0. Hemoglobin stable at 10.4. Platelets are normal. He 5. Renal function and electrolytes are normal. LFTs are normal. High-sensitivity troponin less than 3 EKG on my interpretation shows a sinus rhythm at 86 bpm without signs of ischemic change or dysrhythmia. Chest x-ray negative on my interpretation. CT of the abdomen pelvis shows a right inguinal lymph node of uncertain intermittent significance. Patient requested something for her chest pain and she was given Ativan as I need very highly that this is due to anxiety as she is expressed that she is anxious. I recommended that she get established with another primary care provider as she is not medicated for anxiety. I do not believe she has a delta troponin as she has been having the symptoms for months. I do not believe it is ACS. I did not find any other abnormality other than a right inguinal lymphadenopathy of uncertain significance although the patient did states she had a tattoo on the right leg which is extensive which does not look infected. Her TSH is normal. hCG is negative. I did not find a reason for her weight loss or for her hair loss. I feel the patient is stable for discharge at this time. Impression: 1. Chest pain 2. Anxiety 3. Right inguinal lymphadenopathy 4. Unintentional weight loss 5. Alopecia Lab Data Labs: Laboratory Results - last 24 hr 09/03/23 19:22 WBC 6.0 RBC 3.66 L Hgb 10.4 L Hct 32.4 L MCV 88.5 MCH 28.4 MCHC 32.1 RDW Std Deviation 43.1 RDW Coeff of Patrick 13.3 Plt Count 385 MPV 10.9 Immature Gran % (Auto) 0.200 Neut % (Auto) 44.9 L Lymph % (Auto) 40.7 Armstrong % (Auto) 8.2 Eos % (Auto) 5.2 H Baso % (Auto) 0.8 Absolute Neuts (auto) 2.7 Absolute Lymphs (auto) 2.43 Nucleated RBC % 0 Sodium 138 Potassium 3.8 Chloride 107 Carbon Dioxide 25.0 Anion Gap 6 BUN 5 L Creatinine 1.01 Estim Creat Clear Calc 73.33 Est GFR (MDRD) Af Amer 79 Est GFR (MDRD) Non-Af 65 BUN/Creatinine Ratio 5.0 L Glucose 106 Calcium 8.8 Total Bilirubin 0.70 AST 19 ALT 15 Alkaline Phosphatase 62 Troponin I High Sens < 3 L Total Protein 8.0 Albumin 3.7 Globulin 4.3 H Albumin/Globulin Ratio 0.9 TSH 2.29 Serum , Qual NEGATIVE Radiography Diagnostic Testing: Clinical Impression(s) from Imaging Studies Abdomen/Pelvis CT 09/03/23 21:38 IMPRESSION: 1. Enlarged right inguinal lymph node measuring 1.6 cm in short axis dimension. No other adenopathy identified. Findings could be reactive to an infectious/inflammatory process, but a neoplastic process is not excluded. Correlate with clinical presentation and consider interval follow-up exam versus tissue diagnosis. 2. Intramural uterine fibroid measuring up to 5 cm. Electronically Signed: Geovani Busby MD at 23:15 EDT Reading Location ID and State: [facility] / [place] Tel , Service support , Chest X-Ray 09/03/23 22:52 IMPRESSION: No radiographic evidence of acute cardiopulmonary disease. Electronically Signed: Geovani Busby MD at 23:34 EDT , Discharge Plan Triage Chief Complaint: General Illness ED Provider: Santosh Serna Dx/Rx/DC Orders Prescriptions: No Action ondansetron [ondansetron] 4 mg tablet,disintegrating 8 mg PO Q8H PRN PRN (Reason: Nausea) Qty: 20 0RF Primary Care Provider: Care Physician,No Primary Referrals: Care Physician,No Primary [Primary Care Provider] -
[2023-09-03 22:00] VITALS: BP 124/84; PULSE 97; RESP 16; O2SAT 100
[2023-09-03] MEDS: Ondansetron 4 MG/2 ML Vial IV (22:21)
[2023-09-03] MEDS: 0.9% Normal Saline (1000mL) 1,000 ML 1000 ML IV (22:22)
[2023-09-03 22:32] LABS: Absolute Lymphocyte Count 2.43 X10^3/uL (0.83-4.51); Absolute Neutrophil Count 2.7 X10^3/uL (2.0-7.7); Basophil# 0.05 X10^3/uL; Basophil% 0.8 % (0-1); Eosinophil# 0.31 X10^3/uL; Eosinophils% 5.2 % (0-5); Hematocrit 32.4 % (37-47); Hemoglobin 10.4 g/dL (12.0-15.0); Lymphocyte # 2.43 X10^3/ul (0.83-4.51); Lymphocyte % 40.7 % (19-41); Mean Corp Hgb Conc 32.1 g/dL (32-36); Mean Corpuscular Hgb 28.4 pg (27.0-32.0); Mean Corpuscular Volume 88.5 fL (81-99); Mean Platelet Vol. 10.9 fl (6.2-12.0); Monocyte# 0.49 X10^3/uL; Monocyte% 8.2 % (0-10); NRBC Flagged by Analyzer 0 % (0-5); Neutrophil # 2.68 X10^3/uL (2.7-7.7); Neutrophil % 44.9 % (47-70); Platelet Count 385 K/mm3 (150-450); RBC Distribution Width CV 13.3 % (11.6-14.6); RBC Distribution Width SD 43.1 fl (35.1-43.9); Red Blood Count 3.66 M/mm3 (4.2-5.4)
[2023-09-03 22:39] LABS: Internal QC Validated? YES +Cl - CLEAR BKGD; Pregnancy, Serum, hCG Quali. NEGATIVE Negative
--- NOTE | 2023-09-03 22:52 | RAD_ITS ---
EXAM: XR CHEST, 1 VIEW CLINICAL INDICATION: dyspnea TECHNIQUE: Frontal view of the chest. COMPARISON: No relevant prior studies available. FINDINGS: LUNGS AND PLEURAL SPACES: Unremarkable. No consolidation or edema. No pneumothorax. No effusion. HEART: Unremarkable. Cardiac silhouette not enlarged. MEDIASTINUM: Central airways and mediastinal contour are unremarkable. BONES/JOINTS: Unremarkable. No acute fracture. SOFT TISSUES: Unremarkable. RAD/Chest 1 View (Portable) IMPRESSION: No radiographic evidence of acute cardiopulmonary disease. Electronically Signed: Geovani Busby MD at 23:34 EDT ,
[2023-09-03 22:54] LABS: ALB/GLOB Ratio 0.9 RATIO (0.9-2.4); AST(SGOT) 19 U/L (15-37); Alanine Aminotransfer ALT/SGPT 15 U/L (13-56); Albumin, Serum 3.7 g/dL (3.2-5.0); Alkaline Phosphatase 62 U/L (45-117); Anion Gap 6 (5-15); BUN 5 mg/dL (7-18); Calcium,Total 8.8 mg/dL (8.5-10.1); Chloride 107 mmol/L (98-107); Creatinine, Serum 1.01 mg/dL (0.55-1.02); EST Glomerular Filtration Rate 65 mL/min (>60); Est Glom Filt Rate - Afr Amer 79 mL/min (>60); Estimated Creatinine Clearance 73.33 ml/min; Globulin 4.3 g/dL (2.2-4.2); Glucose 106 mg/dL (74-106); Potassium 3.8 mmol/L (3.5-5.1); Sodium Level 138 mmol/L (136-145); Thyroid Stim Hormone (TSH) 2.29 uIU/mL (0.358-3.74); Troponin-I HS < 3 pg/mL (3.0-54.0)
[2023-09-03] MEDS: LORazepam 2 MG/ML Syringe 1 MG IV (23:37)
[2023-09-04 00:20] VITALS: BP 124/78; PULSE 78; RESP 16; TEMP 36.7; O2SAT 99
== END 2023-09-04 00:20 | disposition home or self-care (01) ==
PROVIDERS: Emergency Provider Student in an Organized Health Care Education/Training Program; Visit Provider Student in an Organized Health Care Education/Training Program
DX: R07.9 Chest pain, unspecified (principal); R19.09 Other intra-abdominal and pelvic swelling, mass and lump; F41.9 Anxiety disorder, unspecified; R63.4 Abnormal weight loss; F17.210 Nicotine dependence, cigarettes, uncomplicated; R59.0 Localized enlarged lymph nodes; L65.9 Nonscarring hair loss, unspecified
CPT/HCPCS: 71045; 74177; 80053; 84443; 84484; 84703; 85025; 87631; 93005; 96361; 96374; 96375; 99284; Q9967; J2405

== ENCOUNTER 2023-09-17 20:24 | Emergency (ER) | payer OTHER, SELFPAY ==
[2023-09-17 20:25] VITALS: BP 130/87; PULSE 111; RESP 17; TEMP 36.4; O2SAT 99; BMI 31.5
[2023-09-17 21:10] VITALS: BP 114/71; PULSE 85; RESP 12; O2SAT 99
--- NOTE | 2023-09-17 21:10 | RAD_ITS ---
INDICATION: chest pain EXAMINATION/TECHNIQUE: X-RAY - XR Chest 1 View COMPARISON: 09/03/2023 FINDINGS: The lungs are clear. The cardiomediastinal silhouette is unremarkable. No pleural effusion or pneumothorax. No acute osseous abnormalities. RAD/Chest 1 View (Portable) IMPRESSION: No acute radiographic abnormalities. Electronically Signed: Juan Carlos Shirley MD at 21:38 EDT ,
[2023-09-17 21:12] LABS: Absolute Lymphocyte Count 2.37 X10^3/uL (0.83-4.51); Absolute Neutrophil Count 1.8 X10^3/uL (2.0-7.7); Basophil# 0.04 X10^3/uL; Basophil% 0.8 % (0-1); Eosinophil# 0.48 X10^3/uL; Eosinophils% 9.3 % (0-5); Hematocrit 31.4 % (37-47); Hemoglobin 10.2 g/dL (12.0-15.0); Lymphocyte # 2.37 X10^3/ul (0.83-4.51); Lymphocyte % 45.8 % (19-41); Mean Corp Hgb Conc 32.5 g/dL (32-36); Mean Corpuscular Hgb 27.9 pg (27.0-32.0); Mean Platelet Vol. 10.1 fl (6.2-12.0); Monocyte# 0.46 X10^3/uL; Monocyte% 8.9 % (0-10); NRBC Flagged by Analyzer 0 % (0-5); Neutrophil # 1.83 X10^3/uL (2.7-7.7); Neutrophil % 35.2 % (47-70); Platelet Count 380 K/mm3 (150-450); RBC Distribution Width CV 13.4 % (11.6-14.6); RBC Distribution Width SD 42.4 fl (35.1-43.9); Red Blood Count 3.65 M/mm3 (4.2-5.4); White Blood Count 5.2 K/mm3 (4.4-11.0)
[2023-09-17 21:33] LABS: Anion Gap 2 (5-15); BUN 5 mg/dL (7-18); BUN/Creat Ratio 5.4 RATIO (10-20); Calcium,Total 8.4 mg/dL (8.5-10.1); Chloride 109 mmol/L (98-107); Creatinine, Serum 0.92 mg/dL (0.55-1.02); EST Glomerular Filtration Rate 72 mL/min (>60); Est Glom Filt Rate - Afr Amer 87 mL/min (>60); Estimated Creatinine Clearance 84.29 ml/min; Glucose 115 mg/dL (74-106); Potassium 3.8 mmol/L (3.5-5.1); Sodium Level 137 mmol/L (136-145); Troponin-I HS (w/2H Reflex) < 3 pg/mL (3.0-54.0)
[2023-09-17 21:59] VITALS: BP 112/62; PULSE 79; RESP 18; O2SAT 99
--- NOTE | 2023-09-17 22:18 | EDS_ITS ---
HPI History of Present Illness Chief Complaint: Chest Pain Informant: patient Onset/Context/Timing Onset: Weeks Activity at onset: gradual Timing: Waxes and wanes Narrative Narrative: Patient present secondary to constant chest pain since 620 this evening. She has been having intermittent chest pain since the first of the month and she was seen here on that date with a negative workup. She states she continues to have bouts of chest pain but feels it has been constant since this evening. She describes it as a heaviness, tightness, and pressure. She does report shortness of breath and some intermittent dizziness. She tells me that she has passed out a couple times this month. She does report mild congestion and cough. [facility] Medical History Marijuana use Encounter for sterilization Anemia Bipolar disorder (manic depression) ADD (attention deficit disorder) Anxiety Depression HSV (herpes simplex virus) infection Home Medications ?Medication ?Instructions ?Recorded ?Last Taken ?Type hydroxyzine pamoate 25 mg capsule 25 mg PO QHS PRN anxiety #20 caps 09/03/23 Unknown Rx (Vistaril) Allergy/AdvReac Type Severity Reaction Status Date / Time chocolate flavor Allergy Upset Verified 09/03/23 18:09 Stomach milk Allergy Upset Verified 09/03/23 18:09 Stomach Family History Father CVA (cerebral vascular accident) Mother Cancer Grandmother Cancer Grandmother Alcoholism Father Alcoholism Mother Alcoholism Surgical History Delivery by section History of surgery Social History Smoking Status: Current every day smoker tobacco type: e-cigarettes ROS ROS ED Constitutional Constitutional ED: Denies chills or fever(s) Eyes Eyes: Denies discharge from eye(s) ENT ENT ED: Denies discharge from eye(s), rhinorrhea or sore throat Cardiovascular Cardiovascular: Reports chest pain, palpitations and racing heartbeat Respiratory/Chest Respiratory/Chest: Reports cough and dyspnea Gastrointestinal Gastrointestinal: Denies abdominal pain, nausea or vomiting Genitourinary Genitourinary ED: Denies dysuria Musculoskeletal Musculoskeletal: Denies back pain or extremity pain Integumentary Denies Abrasions or rash Neurologic Neurologic: Reports weakness; Denies headache(s) Psychiatric Psychiatric: Denies anxiety or depression Allergic/Immunologic Allergic/Immunologic ED: Denies lip swelling or urticaria EXAM Physical Exam Const Vital Signs: 09/17/23 20:25 09/17/23 20:38 09/17/23 21:06 Temperature 97.5 F L Temperature Source Temporal Pulse Rate 111 H Respiratory Rate 17 Respiratory Effort Normal Blood Pressure 130/87 H Blood Pressure Mean 101 Pulse Ox 99 Oxygen Delivery Method Room Air Room Air 09/17/23 21:10 09/17/23 21:59 09/17/23 23:00 Temperature Temperature Source Pulse Rate 85 79 74 Respiratory Rate 12 18 18 Respiratory Effort Blood Pressure 114/71 112/62 110/58 L Blood Pressure Mean 85 78 75 Pulse Ox 99 99 Oxygen Delivery Method Room Air Room Air 09/18/23 00:09 Temperature Temperature Source Pulse Rate 62 Respiratory Rate 18 Respiratory Effort Blood Pressure 110/59 L Blood Pressure Mean 76 Pulse Ox 98 Oxygen Delivery Method Room Air Positive well nourished and well developed General Appearance ED: well developed HEENT Reports moist mucous membranes Eyes EOMs intact bilaterally Chest Wall inspection of chest normal and palpation of chest normal Resp normal respiratory effort and clear to auscultation bilaterally Cardio regular rate and regular rhythm GI soft to palpation and non-tender Extremity normal to inspection Neuro oriented x3 and no sensory deficits noted Motor Exam: strength 5/5 throughout Psych mental status grossly normal Skin no rashes or lesions noted MDM MDM MDM Narrative Medical decision making narrative: Patient placed on gambling monitor. IV line initiated. Labwork obtained to evaluate for leukocytosis, anemia, and electrolyte derangement. EKG obtained to evaluate for cardiac arrhythmia/ischemia. Chest x-ray obtained to evaluate for acute lung pathology, cardiac size, or mediastinal abnormality. History & Record Review Discussion w/independent historian: Patient Additional record(s) reviewed:: Prior ED visit Lab Data Attestation: I reviewed the patient's lab results. Labs: Laboratory Results - last 24 hr 09/17/23 09/17/23 09/17/23 21:05 23:00 23:26 WBC 5.2 RBC 3.65 L Hgb 10.2 L Hct 31.4 L MCV 86.0 MCH 27.9 MCHC 32.5 RDW Std Deviation 42.4 RDW Coeff of Patrick 13.4 Plt Count 380 MPV 10.1 Immature Gran % (Auto) 0.000 Neut % (Auto) 35.2 L Lymph % (Auto) 45.8 H [place] % (Auto) 8.9 Eos % (Auto) 9.3 H Baso % (Auto) 0.8 Absolute Neuts (auto) 1.8 L Absolute Lymphs (auto) 2.37 Nucleated RBC % 0 D-Dimer Quant (PE/DVT) 0.71 H* Sodium 137 Potassium 3.8 Chloride 109 H Carbon Dioxide 26.0 Anion Gap 2 L BUN 5 L Creatinine 0.92 Estim Creat Clear Calc 84.29 Est GFR (MDRD) Af Amer 87 Est GFR (MDRD) Non-Af 72 BUN/Creatinine Ratio 5.4 L Glucose 115 H Calcium 8.4 L Troponin I High Sens < 3 L 4 TSH 1.07 Serum , Qual NEGATIVE Radiography Chest X-Ray - ED: 1 View, Read by ED Physician, Normal, Heart, Lungs and Mediastinum Diagnostic Testing: Clinical Impression(s) from Imaging Studies Chest X-Ray 09/17/23 21:10 IMPRESSION: No acute radiographic abnormalities. Electronically Signed: Juan Carlos Shirley MD at 21:38 EDT , Chest CTA 09/18/23 00:11 IMPRESSION: Negative CTA chest. AIDOC was utilized to assist in identifying pertinent positive findings. Electronically Signed: Gallito Cisneros MD at 1:36 EDT , EKG Initial EKG: Attestation: I personally reviewed and interpreted this EKG as follows: Interpretation: Sinus Rhythm (Sinus 87 with no acute ischemia.) Treatment and Re-Evaluation :: CBC was a white count of 5.2 with normal differential. Hemoglobin is 10.2. Chemistry studies unremarkable. Initial troponin is less than 3 with a repeat troponin of 4. D-dimer is slightly elevated at 0.71. test is negative. TSH is normal at 1.07. Portable chest x-ray per my interpretation reveals normal lungs and mediastinum. Radiology interpretation reviewed and agrees. EKG is sinus rhythm with no evidence of ischemia. Patient is sent for CTA of the chest. This is unremarkable with no evidence of pulmonary embolism or dissection. On repeat evaluation patient sleeping comfortably. She easily awakens. We did discuss her test results. She has had no arrhythmias on monitor here. I do feel she is safe for discharge with close follow-up. She does not have a primary care physician and will be referred to 1 as well as referred to cardiology. Return instructions were provided. Discharge Plan Triage Chief Complaint: Chest Pain ED Provider: Ashley Hunter Dx/Rx/DC Orders Clinical Impression: Chest pain Instructions: ED Chest Pain, Uncertain Cause Prescriptions: No Action hydroxyzine pamoate [Vistaril] 25 mg capsule 25 mg PO QHS PRN (Reason: anxiety) Qty: 20 0RF Primary Care Provider: Piter Noble Referrals: Jt De Jesus MD [Med Staff - Voting Machine Mechanic] - As soon as possible Efra Brown MD [Med Staff - Active Staff] - As soon as possible Piter Noble MD [Primary Care Provider] - Print Language: Greenlandic Disposition Disposition: Home, Self Care
[2023-09-17 23:00] VITALS: BP 110/58; PULSE 74; RESP 18
[2023-09-17 23:10] LABS: Reflex Troponin-HS? (from REC) Y
[2023-09-17 23:27] LABS: Internal QC Validated? YES +Cl - CLEAR BKGD; Pregnancy, Serum, hCG Quali. NEGATIVE Negative
[2023-09-17 23:40] LABS: Thyroid Stim Hormone (TSH) 1.07 uIU/mL (0.358-3.74)
[2023-09-17 23:49] LABS: Troponin-I HS 4 pg/mL (3.0-54.0)
[2023-09-18 00:03] LABS: D-Dimer Quantitative (DVT/PE) 0.71 FEU/ug/m (0.27-0.49)
[2023-09-18 00:09] VITALS: BP 110/59; PULSE 62; RESP 18; O2SAT 98
--- NOTE | 2023-09-18 00:11 | CT_ITS ---
EXAM: CT ANGIOGRAPHY CHEST WITHOUT AND WITH INTRAVENOUS CONTRAST CLINICAL INDICATION: pulmonary embolism TECHNIQUE: Helically acquired angiography images were obtained of the chest without and with intravenous contrast. CTDIvol = ( 5.80 ) mGy, DLP = ( 184.93 ) mGycm This CT exam was performed using one or more of the following dose reduction techniques: automated exposure control, adjustment of the mA and/or kV according to patient size, and/or use of iterative reconstruction technique. MIP reconstructed images were created and reviewed. CONTRAST: IV 100mL [id number] COMPARISON: No relevant prior studies available. FINDINGS: PULMONARY ARTERIES: Unremarkable. Normal in caliber. No evidence of pulmonary embolism. AORTA: Unremarkable. Normal in caliber. No evidence of dissection. GREAT VESSELS OF AORTIC ARCH: Unremarkable. Normal in caliber. No evidence of dissection. LUNGS AND PLEURAL SPACES: Unremarkable. No mass. No consolidation or edema. No pleural effusion or thickening. No pneumothorax. HEART: Unremarkable. Heart size is normal. No pericardial effusion. No significant coronary artery calcifications. MEDIASTINUM: Unremarkable. No mediastinal or hilar adenopathy. Esophagus is unremarkable. No hiatal hernia. THYROID: Unremarkable. No thyroid lesions. BONES/JOINTS: Unremarkable. No suspicious lytic or blastic abnormality. CT/CTA Chest W/WO Contrast IMPRESSION: Negative CTA chest. AIDOC was utilized to assist in identifying pertinent positive findings. Electronically Signed: Gallito Cisneros MD at 1:36 EDT ,
[2023-09-18 01:59] VITALS: BP 106/65; PULSE 68; RESP 18; TEMP 36.6; O2SAT 98
== END 2023-09-18 02:00 | disposition home or self-care (01) ==
PROVIDERS: Emergency Provider Emergency Medicine; PCP Internal Medicine; Visit Provider Emergency Medicine
DX: R07.9 Chest pain, unspecified (principal); F41.9 Anxiety disorder, unspecified; Z79.899 Other long term (current) drug therapy; F17.290 Nicotine dependence, other tobacco product, uncomplicated
CPT/HCPCS: 71045; 71275; 80048; 84443; 84484; 84703; 85025; 85379; 93005; 99284; Q9967; A4216

== ENCOUNTER → 2023-10-08 | Outpatient (CLI) | payer OTHER, SELFPAY ==
--- NOTE | 2023-10-08 17:25 | STRESSREP_ITS ---
Stress Test Report Exercise stress test. 37-year-old lady with a history of chest pain Stress protocol: Resting EKG demonstrates normal sinus rhythm with a rate of 85 bpm resting blood pressure is 108/82 mmHg. The patient exercised according to the regular Albert protocol for a total duration of 9 minutes attaining a maximum heart rate of 164 bpm which was 89% of maximum predicted heart rate; the maximum workload was 10.1 metabolic equivalents. At rest there were no ST or T wave changes noted to suggest ischemia and at peak exercise upsloping ST changes only were noted which did not meet the criteria for ischemia. The patient did complain of persistent chest discomfort from beginning of the test to the end with no significant change in pattern. The above does not appear to be suggestive of clinical angina. The test was terminated due to the target heart rate being achieved/fatigue. The peak blood pressure was 144/68 mmHg. Rate-pressure prod uct was 23,600. Conclusion: Stress test with no EKG criteria for ischemia at a high workload. chest discomfort noted of unclear significance.
== END | disposition home or self-care (01) ==
LOC: CVS 12:29
PROVIDERS: PCP Internal Medicine; Referring Provider Internal Medicine Cardiovascular Disease; Visit Provider Internal Medicine Cardiovascular Disease
DX: R07.9 Chest pain, unspecified (principal)
CPT/HCPCS: 93017

== ENCOUNTER 2024-02-12 17:51 | Observation (INO) | payer OTHER, SELFPAY ==
--- NOTE | 2024-01-28 15:50 | PCM.HP.BLA ---
History and Physical Date of Admission: 02/12/24 HPI: The patient is a 38 year old female presenting for pre-operative visit. She is scheduled for TLH, bilateral salpingecotmy and cystoscopy, for menorrhagia, dysmenorrhea and uterine fibroids on 02/12/24. Procedure discussed along with risks, benefits and complications. Other alternatives discussed for management. Consent form signed? Yes. PAST MEDICAL HISTORY PAST MEDICAL HISTORY Diagnosis Date ? Anemia ? Anemia complicating , first trimester 05/16/2020 06/29/20 - s/p heme consult with Dr. Bennett, on Ferrex daily - Eric Denny MD 05/16/20- HGB 10.2- Iron studies ordered. Repeat CBC in 30 days. Zita Valenzuela APRN.CNM ? Anxiety ? Attention deficit disorder with hyperactivity(314.01) ? Bipolar disorder, unspecified (HCC) Manic-depressive ? Depression ? Herpes simplex virus (HSV) infection ? History of herpes genitalis 04/20/2020 04/20/2020Pt has a history of genital herpes. Discussed with pt. importance of reporting any outbreaks during should they occur. TKRN ? Marijuana use 04/27/2020 ? Medial tibial stress syndrome 12/16/2014 esquivel splints ? Meningitis, viral ? Migraines 07/29/2013 ? Nausea/vomiting in 04/20/2020 04/20/2020Patient is complaining of nausea and occasional vomiting in . Dietary considerations discussed . Vitamin B6 recommended. Advised patient to call/come in if she is unable to keep any food or fluids down in a 24-hour period.TKRN ? Other problems related to social environment 04/20/2020 04/20/2020Patient's is not the father the baby. She said the father the baby is in correction and is not aware that she is . Patient does not wish to have any contact with him. She states her has said he is taking claim of this child. That he believes for some reason God has told him that the baby and she need him.TKRN ? with history of section, antepartum 04/20/2020 06/08/20 - plans for repeat , declines TOLAC - Eric Denny MD 04/20/2020Pt had a previous C section due to intolerance of labor. She desires a repeat C section by Dr Denny.Pt has a history of depression and anxiety diagnosed at age 15. She has been off medication since age 18. She was hoping to go back on medication but found out she was so was decided not to. She current ? Sickle cell trait (HCC) 08/11/2009 ? Subchorionic hematoma 04/05/2020 04/04/20- 3.8 cm diameter seen on dating ultrasound PAST SURGICAL HISTORY PAST SURGICAL HISTORY Procedure Laterality Date ? DELIVERY ONLY 05/05/2009 , low transverse ? LIGATE FALLOPIAN TUBE W SECTION Bilateral 11/16/2020 [facility] ? TONSILLECTOMY PRIMARY/SECONDARY <AGE 12 Tonsillectomy ? UNLISTED PROCEDURE HEMIC/LYMPH 11/2023 removal lymphnode right groin ink posioning CURRENT MEDICATIONS Current Outpatient Medications Medication Sig Dispense Refill ? escitalopram oxalate (LEXAPRO) 5 mg tablet Take 1 tablet by mouth every afternoon. ? hydrOXYzine HCl (ATARAX) 25 mg tablet ? tranexamic acid (LYSTEDA) 650 mg tablet Take 2 tablets by mouth three times a day as needed (heavy menstrual bleeding). 30 tablet 2 ? miSOPROStol (CYTOTEC) 200 mcg tablet Insert 2 tablets vaginally night prior to EMB and 2 tablets morning of procedure. Each dose should be in vagina for 6-8 hours. (Patient not taking: Reported on 01/28/2024) 4 tablet 0 No current facility-administered medications for this visit. ALLERGIES: Chocolate, Dust Mites, and Milk PERSONAL HISTORY: SOCIAL HISTORY Social History Tobacco Use ? Smoking status: Former Current packs/day: 0.00 Average packs/day: 0.5 packs/day for 5.0 years (2.5 ttl pk-yrs) Types: Cigarettes Start date: 05/05/2000 Quit date: 05/05/2005 Years since quittin.7 ? Smokeless tobacco: Never Vaping Use ? Vaping status: Some Days ? Substances: THC, Flavoring ? Devices: Disposable Substance Use Topics ? Alcohol use: Not Currently Comment: Socially ? Drug use: Yes Frequency: 2.0 times per week Types: Marijuana FAMILY HISTORY: FAMILY HISTORY FAMILY HISTORY Adopted: Yes Problem Relation Age of Onset ? other (adopted) Other ? Cervical Cancer Mother mid 30's ? Cancer Mother stomach ? Stroke Father ? Alcohol/Drug Father liver cirrhosis ? Alcohol/Drug Sister ? Alcohol abuse Brother ? Cancer Maternal Grandmother ? Kidney Disease Maternal Grandmother ? Alcohol abuse Maternal Grandmother ? No Known Problems Maternal Grandfather ? Cancer Paternal Grandmother ? No Known Problems Paternal Grandfather ? Alcohol abuse Brother ? Alcohol abuse Brother ? Alcohol abuse Brother ? Alcohol abuse Brother ? Asthma Sister ? Alcohol abuse Sister ? other (acid reflux) Sister ? Alcohol abuse Sister ? Alcohol abuse Sister ? Alcohol abuse Sister ? Alcohol abuse Sister ? Alcohol abuse Brother ? Alcohol abuse Brother ? Alcohol abuse Brother ? Alcohol abuse Brother ? No Known Problems Daughter REVIEW OF SYMPTOMS: GENERAL: denies fevers or chills ENDOCRINOLOGY: has not been on steroids Cardiology : denies palpitations or chest pain Respiratory: denies SOB or cough Hematology: denies history of prolonged bleeding or easy bruising or VTE Allergy: Denies history of personal or family history of allergy to anesthesia PHYSICAL EXAMINATION: VITALS: Blood pressure 98/68, pulse 95, resp. rate 16, height 158.1 cm (5' 2.25), weight 64 kg (141 lb), last menstrual period 01/24/2024, SpO2 100%. GENERAL: The patient is well nourished, well hydrated in no acute distress. , The patient is oriented to time, place, and person. NECK: Supple. No lynphadenopathy, normal thyroid, no thyromegaly. LUNGS: Clear to auscultation bilaterally. no wheezes, rhonchi or rales HEART: Regular rate and rhythm, Normal heart sounds, and No murmurs or gallops Pelvic US 12/05/23 Indication Fibroids Impression Anteverted fibroid uterus that measures 120 mm x 51 mm x 72 mm. The largest fibroids are described below. Estimated uterine volume is 232 cc compared to 193 cc on 03/09/2020. Endometrium has a normal trilaminar appearance and measures 14.3 mm. Normal endometrial contour. Both ovaries are visualized and appear normal with follicular change. No adnexal masses were observed. There is free fluid visualized in the peritoneal cavity. Recommendations Follow up as clinically indicated. History Medical History Surgery: section x2 Surgery: Tubal ligation Menstrual History LMP on 11/22/2023. Contraception: tubal sterilization Method Transabdominal, transvaginal, 3D ultrasound examination, Color Doppler examination. View: Adequate visualization Uterus Uterus: Visualized Uterus position: anteverted Description of uterine malformations: none Myometrium: normal Endometrium: three-layer pattern Cervix details: normal Uterus length 120 mm Uterus width 72 mm Uterus height 51 mm Uterus Vol 231.9 cm? Endometrial thickness, total 14.3 mm Uterine fibroid D1 43 mm Uterine fibroid D2 44 mm Uterine fibroid D3 48 mm Uterine fibroid mean 45.0 mm Uterine fibroid vol 47.664 cm? Uterine fibroids findings: Right lateral anterior wall. Subserous Right Ovary Rt ovary: Visualized Rt ovary morphology: premenopausal with dominant follicle Rt ovary D1 43 mm Rt ovary D2 33 mm Rt ovary D3 19 mm Rt ovary Vol 13.8 cm? Rt ovarian follicle D1 21.2 mm Rt ovarian follicle D2 14.2 mm Rt ovarian follicle mean 17.7 mm Rt ovarian follicle vol 2.246 cm? Left Ovary Lt ovary: Visualized Lt ovary morphology: premenopausal normal follicular Lt ovary D1 36 mm Lt ovary D2 29 mm Lt ovary D3 12 mm Lt ovary Vol 6.4 cm? Cul de Sac Visualized. free fluid visualized: small IMPRESSION: intramural uterine fibroids, menorrhagia, BV PLAN: The risks/benefits/alternatives and personal involved for the planned TLH, bilateral salpingectomy and cystoscopy were reviewed with the patient. Her questions were answered to her satisfaction and she desires to proceed. Consent was signed. I reviewed with her postop instructions and expectations. H/o BV recently, will give IV flagyl preoopl I have reviewed and updated past medical and surgical history, medications and allergies Assessment & Plan Assessment/Plan (1) Intramural uterine fibroid: (2) Abnormal uterine bleeding (AUB):
[2024-02-12] VITALS (21 sets, daily range): BP systolic 97–107; BP diastolic 43–68; PULSE 62–84; RESP 15–18; TEMP 36.5–37.2; O2SAT 92–100; BMI 25.7; BMI 25.6
[2024-02-12 10:11] LABS: Internal QC Validated? YES +Cl - CLEAR BKGD; Pregnancy, Urine Negative Negative
[2024-02-12] MEDS: metroNIDAZOLE 500 MG/100 ML BAG 100 MG IV (10:21)
[2024-02-12] MEDS: Lactated Ringers 1,000 ML 15 ML IV (10:21)
[2024-02-12 10:28] LABS: Hematocrit 28.2 % (37-47); Mean Corp Hgb Conc 31.9 g/dL (32-36); Mean Corpuscular Hgb 26.9 pg (27.0-32.0); Mean Corpuscular Volume 84.2 fL (81-99); Mean Platelet Vol. 10.3 fl (6.2-12.0); Platelet Count 294 K/mm3 (150-450); RBC Distribution Width CV 16.3 % (11.6-14.6); RBC Distribution Width SD 50.6 fl (35.1-43.9); Red Blood Count 3.35 M/mm3 (4.2-5.4)
[2024-02-12 10:50] LABS: Bedside Glucose 82 mg/dL (74-106)
--- NOTE | 2024-02-12 10:58 | PCM.PRE.AN2 ---
ASA Classification* ASA Classification ASA Classification: 2 Assessment & Plan Anesthesia* Anesthesia Assessment Anesthesia Assessment: Discussed sedation and/or anesthesia options, risks, benefits, and alternatives with patient/parents/legal guardian/POA. Questions invited. The patient/parents/legal guardian/POA seems to understand and agrees to proceed with anesthesia plan. Reviewed the physical assessment, medical history, allergy history and patient home medications list prior to surgery/procedure/anesthetic and documented any changes. Performed airway and anesthesia risk assessments. Anesthesia Type Anesthesia Type: General (see written pre anesthesia record for full assessment) Anesthesia Focused Assessment* Temperature: 97.7 F Pulse Rate: 62 Blood Pressure: 105/68 Respiratory Rate: 16 Pulse Ox: 100 Airway Assessment Mouth opens: >3 cm Mallampati Score: III Focused Labs Anesthesia Preop lab: CBC WBC 4.0 K/mm3 (4.4-11.0) L 02/12/24 10:16 RBC 3.35 M/mm3 (4.2-5.4) L 02/12/24 10:16 Hgb 9.0 g/dL (12.0-15.0) L 02/12/24 10:16 Hct 28.2 % (37-47) L 02/12/24 10:16 Plt Count 294 K/mm3 (150-450) 02/12/24 10:16 CHEMISTRY Potassium 3.8 mmol/L (3.5-5.1) 09/17/23 21:05 Sodium 137 mmol/L (136-145) 09/17/23 21:05 Magnesium 2.0 mg/dL (1.6-2.6) 02/12/24 10:16 BUN 5 mg/dL (7-18) L 09/17/23 21:05 Creatinine 0.92 mg/dL (0.55-1.02) 09/17/23 21:05 Glucose 115 mg/dL (74-106) H 09/17/23 21:05 POC Glucose 82 mg/dL (74-106) 02/12/24 10:20 TSH 1.07 uIU/mL (0.358-3.74) 09/17/23 23:00 COAG Urine Test Negative Negative 02/12/24 09:55 Pre-Assessment Diagnosis/Proposed Procedure Planned Operative Procedure(s): (B) Hysterectomy,TLH, bilarteral salpingectomy, cystoscopy, ERAS Anesthesia History Anesthesia History - statistical typist: Anesthesia History - statistical typist Hx Hospitalization No 02/05/24 10:30 Any Problems With Anesthesia No 02/05/24 10:30 Cholinesterase deficiency No 02/05/24 10:30 You/Your Family Experience No 02/05/24 10:30 fever (hyperthermia) with Relationship Recent Exposure to Contagious No 02/12/24 10:07 Disease Does patient have nerve No 02/05/24 10:30 stimulator Patient instructed to have device shut off --Does patient have Pacemaker No 02/12/24 10:07 or ICD? When Was Last Pacemaker Check QUESTION #4 FULL TEXT: You/Your Family Experience fever (hyperthermia) with Anesthesia Last Oral Intake Last Oral intake: Last Oral Intake NPO since 07:15 02/12/24 10:07 Meds taken in AM with sips of Yes 02/12/24 10:07 water? Meds patient instructed to see mar 02/12/24 10:07 take am of surgery PONV PONV - statistical typist: PONV - statistical typist Female Yes 02/05/24 10:30 HX of Motion Sickness No 02/05/24 10:30 HX of N/V After Surgery No 02/05/24 10:30 Non-Smoker No 02/05/24 10:30 Duration of Surgery greater Yes 02/05/24 10:30 than 60 minutes Number of Risk Factors 2 02/05/24 10:30 PONV Score Moderate Risk 02/05/24 10:30 Height & Weight Height & Weight: Anesthesia: Height & Weight Height 5 ft 3 in 02/12/24 10:07 Weight: 65.771 kg 02/12/24 10:07 Body Mass Index (BMI) 25.7 02/12/24 10:07 Respiratory Assessment Respiratory Assessment - statistical typist: Respiratory Tract Infection Hx - statistical typist Hx Respiratory Tract Infection No 02/05/24 10:30 STOP Sleep Apnea STOP Sleep Apnea - statistical typist: STOP Sleep Apnea - statistical typist Hx Hypertension No 02/05/24 10:30 Hx Sleep Apnea No 02/05/24 10:30 CPAP BIPAP Do you snore loudly (louder No 02/05/24 10:30 than talking or can be heard Do you often feel tired/ No 02/05/24 10:30 fatigued/ sleepy during daytime? Has anyone observed you stop No 02/05/24 10:30 breathing during sleep? STOP Results Negative 02/05/24 10:30 QUESTION #5 FULL TEXT : Do you snore loudly (louder than talking or can be heard through closed doors)? Tobacco Use History Tobacco Use History - statistical typist: Tobacco Use History - statistical typist Tobacco Use Smoking Status Current every day smoker 02/05/24 10:30 Hx Tobacco Use No 02/05/24 10:30 Years Smoking Packs Smoked per Day Smoking Cessation Date was within the last 15 years Hx Smoking Cessation Date Hx Smoking Cessation Counseling Hematologic Medial History Hematologic Hx - statistical typist: Hematologic Medical Hx - environmental coordinator Hx of Blood Transfusion No 02/05/24 10:30 Hx of Transfusion in last 3 No 02/05/24 10:30 Months Date of Last Transfusion (if within last 3 months) Ever experience any problems No 02/05/24 10:30 with transfusion(s)? Specify any problems Hx of Preganancy in last 3 No 02/05/24 10:30 Months Nurse Filling Out Transfusion VCHRISTIN 02/05/24 10:30 & Questions: Date: 02/05/24 02/05/24 10:30 Time: 10:32 02/05/24 10:30 Patient unable to answer at this time (ie. confused, unrespo /Reproduction History /Reproductive History - statistical typist: /Reproductive Hx- statistical typist Hx Now No 02/05/24 10:30 Gestational Age (in weeks): EDC: Hx Hx Para Hx Section SAB No 02/05/24 10:30 Active Medications Active Medications: Current Medications Generic Name Dose Route Start Last Admin Trade Name Freq PRN Reason Stop Dose Admin Metronidazole 500 mg in 100 mls @ 100 mls/hr 02/12/24 10:30 02/12/24 10:21 Flagyl IV 02/12/24 11:29 100 mls/hr PREOP ONE Administration Cefotetan Disodium 2 gm/ 100 mls @ 200 mls/hr 02/12/24 10:30 Sodium Chloride IV 02/12/24 10:59 PREOP ONE Lactated Ringer's 1,000 mls @ 15 mls/hr 02/12/24 10:00 02/12/24 10:21 IV 02/15/24 04:39 15 mls/hr .Q48H JULISSA Administration Protocol Magnesium Sulfate 1 gm/ 102 mls @ 408 mls/hr 02/12/24 11:00 Dextrose IV 02/12/24 11:14 X1 ONE PFSH Medical History Back pain Migraine headache Injury of head and neck Gastric reflux Smoker Shortness of breath on exertion History of pain when walking History of stress test Cardiology follow-up encounter Syncope Chest pain Marijuana use Encounter for sterilization Anemia Bipolar disorder (manic depression) ADD (attention deficit disorder) Anxiety Depression HSV (herpes simplex virus) infection Home Medications ?Medication ?Instructions ?Recorded ?Last Taken ?Type escitalopram oxalate 5 mg tablet 10 mg PO DAILY 02/05/24 02/12/24 History hydroxyzine pamoate 25 mg capsule 50 mg PO QHS PRN anxiety 02/05/24 02/12/24 History (Vistaril) Allergy/AdvReac Type Severity Reaction Status Date / Time Environmental Allergies: Allergy Intermediate Other Verified 02/12/24 10:06 Uncoded (dust mites) chocolate flavor Allergy Upset Verified 02/12/24 10:06 Stomach milk Allergy Upset Verified 02/12/24 10:06 Stomach Family History Father CVA (cerebral vascular accident) Mother Cancer Grandmother Cancer Grandmother Alcoholism Father Alcoholism Mother Alcoholism Surgical History Hx of lymph node biopsy Delivery by section History of surgery Social History Smoking Status: Current every day smoker tobacco type: e-cigarettes Review of Systems (Anesthesia) ROS Narrative System reviewed and no additional complaints, except as documented.
[2024-02-12] MEDS: Magnesium 1 GM over 15 mins IV (10:59)
--- NOTE | 2024-02-12 11:15 | HYST_PTH ---
PATIENT: JANET GARCIA LOC: [facility] U#:[id number] AGE/SX: 38/F ROOM: [facility] RE02/12/[address]: Dr. Roselia Angel MD : 1985 BED: 1 DIS: 02/14/2024 SPEC #: [id number] RECD: 02/12/24 14:52 STATUS: STEPHEN DUONG #: [id number] CATA: 02/12/24 11:[address]: Roselia Angel DEPT: SURGICAL PATHOLOGY RECD BY: Tomas Nielsen ENTERED: 02/13/24 10:18 SP TYPE: HYSTERECT OTHR DR: Dr. Jt De Jesus MD Tissues: Uterus, NOS Procedures: Surgery Specimen Level V HEADER OPERATION: Total laparoscopic hysterectomy, bilateral salpingectomy PRE-OP DIAGNOSIS: Intramural uterine fibroid, abnormal uterine bleeding TISSUE SUBMITTED: Uterus, cervix, bilateral fallopian tubes MICROSCOPIC DIAGNOSIS Uterus, cervix, bilateral fallopian tubes, hysterectomy, bilateral salpingectomy: Cervix - Mild chronic inflammation. Endometrium - Proliferative endometrium. Myometrium - Intramural leiomyoma (5.0cm in diameter) with extensive of hyalinization and infarction. Fallopian tubes- Segments of fallopian tubes, no pathologic diagnosis. A paratubal cyst. 02/16/2024 MICROSCOPIC DESCRIPTION Slides are reviewed. GROSS DESCRIPTION Received in fixative is one container labeled with the patient's name and designated uterus, cervix and bilateral fallopian tubes. The specimen consists of a uterus with attached cervix and detached fragments of fallopian tubes. The uterus with cervix measures 12.0 x 9.0 x 6.0cm and weighs 221 gm. The ectocervix is unremarkable. The cervical os is oval in contour and free of mass lesions. The endocervical canal measures 4.5 cm in length and is grossly unremarkable. The triangular endometrial cavity measures 4.0 x 3.0 cm. The velvety, reddish- simms and glistening endometrium measures up to 0.3 cm in thickness. The myometrium measures 2.5 cm in average thickness and contains a firm rubbery simms nodule measuring 5.0cm in diameter. Cut sections of nodule reveals whorled appearance without cyst formation or necrosis. Also present free in the container are three fragments of presumed fallopian tubes ranging in size from 1.5cm to 2.0cm in length. A paratubal cyst appears to be present measuring 1.0cm and containing clear fluid. Industrial Real Estate Agent sections are submitted in 10 cassettes as follows: 1 - anterior cervix, 2 - posterior cervix, 3 & 4 - anterior uterine wall, 5 & 6 - posterior uterine wall, 1-4-vwwtukdmbb mass, 10- fallopian tube fragments and presumed paratubal cysts. / Jovita 02/13/2024 TC:1 CPT: 11024
[2024-02-12] MEDS: Cefotetan 2 GM in 0.9% Normal Saline (100mL MB+) 100 ML IV (12:30)
[2024-02-12] MEDS: Bupivacaine Mpf 0.5% 30 ML VIAL (14:40)
--- NOTE | 2024-02-12 14:53 | PCM.DC ---
Discharge Instructions Diet Discharge Diet: Light diet - advance as tolerated Activity Discharge Activity: May Drive (when no longer taking pain medications) May shower in (days): 1 May resume sexual activity in: 6-8 weeks and - (Nothing in your vagina for 6 weeks. No vaginal or anal intercourse for 6-8 weeks) Lifting Restrictions: 15 lbs for 6 weeks Dressing / Incision Call your doctor if your incision/area has: Continuous Slow Oozing, Sudden Increased Bleeding and Foul Smelling Discharge Call your doctor if you observe: Fever of 101 or Higher Cleanse incision/area with: Soap & Water and - (Your incisions have skin glue, it can get wet, leave the glue on until it falls off. ) Additional Dressing/Incision Instructions:: No tampons, intercourse, tub baths, swimming pools or anything in your vagina for 6 weeks. Follow Up Care Please Follow Up With: Roselia Angel MD When: With my office in 1-2 and 6 weeks or as needed. [phone] Send a [employer] message for non urgent inquiries. Test Results: Test results from this visit will be discussed in further detail at your follow-up appointment, if applicable. Pending Tests Upon Discharge: I recommend following up with an ENT- Ears, nose and throat specialist to have your throat examined. Discharge Plan Admission Primary Reason for Your Visit: Hysterectomy Attending Provider: Roselia Angel Primary Care Provider: Jt De Jesus Instructions Print Language: Armenian Discharge Orders/Prescriptions Prescriptions: New ibuprofen 600 mg tablet 600 mg PO Q6H PRN (Reason: Pain) 30 Days Qty: 60 1RF oxycodone 5 mg tablet 5 mg PO Q6H PRN PRN (Reason: severe pain) 5 Days Qty: 12 0RF acetaminophen [Acetaminophen Extra Strength] 500 mg tablet 1,000 mg PO Q6H PRN (Reason: fever or pain) Qty: 60 0RF docusate sodium [Colace] 100 mg capsule 100 mg PO BID 10 Days Qty: 20 0RF No Action escitalopram oxalate 5 mg tablet 10 mg PO DAILY hydroxyzine pamoate [Vistaril] 25 mg capsule 50 mg PO QHS PRN (Reason: anxiety) Referrals / Follow Up: Piter Noble MD [Med Staff - Thoracic Medicine Specialist] - Disposition Disposition (needs filled in before D/C Order can be placed): Home, Self Care
--- NOTE | 2024-02-12 14:58 | OP.PCM_ITS ---
Problems Associated Problem List Diagnoses (1) Abnormal uterine bleeding (AUB): (2) Intramural uterine fibroid: Report of Operation Date of Procedure: 02/12/24 Pre-Operative Diagnosis: abnormal uterine bleeding, intramural uterine fibroid Post-Operative Diagnosis: same Surgery/Procedure Performed:: Total laparoscopic hysterectomy with bilateral salpingectomy and cystoscopy Description of Surgical Findings:: Enlarged boggy uterus with large intramural fibroid, bilateral fallopian tubes with evidence of previous tubal ligation, normal ovaries. And otherwise unremarkable peritoneal cavity. Normal vagina, cervix and bladder. Surgeon: Roselia Angel gas dispenser: Chen Ugalde gas dispenser: Leyda Alston Type of Anesthesia: General Anesthesiologist: Elsi Suggs Special Medications: none Specimen's removed: Uterus, cervix, bilateral fallopian tube remnants Drains: none Estimated Blood Loss (mL): 200 Fluids Replaced: 1000 Description of Procedure: The patient was taken to the operating room where she was prepped and draped in the dorsal lithotomy position. Her arms were tucked to the side and padded and her legs were placed in the yellowfin stirrups. Care was taken to ensure that she was placed in a neurologically safe and neutral position. A weighted speculum was placed in the vagina and the anterior lip of the cervix was grasped with a single-tooth tenaculum. The cervix sounded to 11 centimeters. 2-0 Vicryl sutures were secured to the cervix at 3 and 9:00. The uterine lining parts sewer 3 cm cup was placed into the vagina and the balloon inflated. The stay sutures were placed through the cup and secured down to the cervix. Once the V-Care was secured to the cervix the Frank catheter was placed to straight drain. Attention was turned to the abdominal portion of the case. Before skin incisions were made they were infiltrated with 0.5% Marcaine solution for local anesthetic. A 5 mm supraumbilical incision was made and while tenting the anterior abdominal wall up with towel clamps a 5 mm blade less trocar and sleeve were advanced directly into the peritoneal cavity. Peritoneal placement was confirmed with the laparoscope the pneumoperitoneum was created, and the underlying abdominal contents were intact. The patient was placed in Trendelenburg and the above findings were noted. Right and left lateral 5 mm trochars were placed under direct visualization without difficulty. The antimesenteric portion of the tubal remnants were clamped sealed and transec brian serially on both sides with the LigaSure device. The round ligaments were clamped sealed and transected and a window was made in the peritoneum. The utero-ovarian ligaments were then clamped sealed and transected with the LigaSure device and the pedicles were hemostatic The bladder flap was dissected down with the LigaSure device and blunt dissection and the uterine arteries were then skeletonized. The uterine arteries were clamped sealed and transected on both sides with the LigaSure device. Then along the cardinal ligament uterine arteries adjacent to the cervix were clamped sealed and transected with the LigaSure device to move them away from the vaginal cuff angle. At this point the pedicles were all examined and found to be hemostatic. The bladder flap was rechecked and found to be adequately down. The monopolar tip of the LigaSure device was then used to enter the anterior vagina. The vaginal manipulator cup was noted in the vaginal colpotomy incision was made circumferentially around the cup. When the 3 and 9:00 positions of the cervicovaginal junction were reached these were clamped sealed and transected with the LigaSure device to secure any small remaining vessels. At this point the pedicles were hemostatic from above and attention was turned to the vaginal portion of the case again. The uterus was brought intact out through the vaginal colpotomy incision along with the tubes There is some bleeding from the vaginal cuff angles and these were oversewn with 0 Vicryl [id number] sutures . The posterior vaginal cuff was run and reattached to the posterior peritoneum with a 2-0 Vicryl running locked suture. There was some oozing of the posterior cuff and peritoneal edges and some Heema blast was placed over these and pressure held for 2 minutes. Hemostasis was excellent. Vaginal angle sutures were placed on both sides with 0 Vicryl sutures and care was taken to ensure that the uterosacral ligament was secured into this stitch. The remainder the vagina was then closed horizontally with interrupted 0 Vicryl sutures. The cuff was hemostatic vaginally. The Frank catheter was removed and a cystoscopy was performed. The bladder appeared normal and was intact. Both ureteral orifices were noted and both ureteral jets were seen. The cystoscope was removed and the Frank catheter was placed back to straight drain. A sponge stick was placed in the vagina to help place traction against the vaginal cuff and the pneumoperitoneum was re-created. The suction psychologist chief was used to remove any blood and clots from the peritoneal cavity. The pedicles were reexamined and found to be hemostatic. The vaginal cuff was hemostatic. Some Hemablast was placed over the cuff and the pedicles and no active bleeding was noted through the Darrick. The right and left lateral ports were taken out and the sites were hemostatic. The pneumoperitoneum was released and even under low pressure there was no bleeding of any of the pedicles are vaginal cuff. The umbilical port was removed. The umbilical skin incisions were closed with Monocryl suture and skin glue by Dr. Boss. The vaginal instruments were removed by me and a vaginal sweep was completed by me. The surgery was performed by me with assistance other than the portions dictated as above. There were no qualified residents available for this procedure. All sponge lap and needle counts were correct and the patient was transferred to the recovery room in stable condition. Dr. Ugalde provided camera guidance, tissue manipulation, sealing and transecting the pedicles on her side of the case. She also perform skin closure. The student performed assistance with skin closure and tissue manipulation during the surgery. Grafts/Implants Used: none Procedure Start Time: 12:34 Procedure Stop Time: 14:49 Complications none Admit VTE Documentation VTE Present on Admission: No VTE Mechan Device Prophylaxis: SCD's VTE Pharm Prophylaxis ordered?: No Reason prophylaxis not ordered:: Procedure Not Indicated
--- NOTE | 2024-02-12 15:08 | PCM.POST.ANE ---
Anesthesia: Postop Eval I Current Vital Signs Temperature: 98.2 F Pulse Rate: 77 Blood Pressure: 104/43 Respiratory Rate: 18 Pulse Ox: 93 Assessment Airway patent: Yes Spontaneous unlabored respirations: Yes nausea: No Vomiting: No Anesthesia Complication: No Fluid Hydration Crystalloid volume administer (ml): 1,000 Total IV fluid infused: 1,000 Progress Note Anesthesia document: Postop Eval 1 completed: Yes
--- NOTE | 2024-02-12 15:24 | POSTOPAN2_ITS ---
Anesthesia Postop Eval I Sum Postop Eval Completion status Anesthesia document: Postop Eval 1 completed: Yes Anesthesia Postop Eval I Summary Anesthesia Postop Eval I Summary: Anesthesia Postop Eval I: Assessment Summary Airway patent Yes 02/12/24 15:08 RECEIPT AND REPORT [email or web address] Spontaneous unlabored Yes 02/12/24 15:08 RECEIPT AND REPORT CLERK.CSIR respirations Mental status nausea No 02/12/24 15:08 RECEIPT AND REPORT CLERK.CSIR Vomiting No 02/12/24 15:08 RECEIPT AND REPORT CLERK.CSIR Anesthesia Postop Eval I: Fluid Summary Crystalloid volume administer 1,000 02/12/24 15:08 RECEIPT AND REPORT CLERK.CSIR (ml) Colloids volume administered ( ml) Blood Product volume administered (ml) Total IV fluid infused 1,000 02/12/24 15:08 RECEIPT AND REPORT CLERK.CSIR Anesthesia Postop Eval I: Summary Notes Anesthesia Complication No 02/12/24 15:08 RECEIPT AND REPORT CLERK.CSIR Anesthesia Complication Comment: Post-operative progress note Anesthesia: Postop Eval II Evaluation Mental status: Awake Pain Level: 0 nausea: No Vomiting: No
--- NOTE | 2024-02-12 15:24 | PCM.POSTANE2 ---
Anesthesia Postop Eval I Sum Postop Eval Completion status Anesthesia document: Postop Eval 1 completed: Yes Anesthesia Postop Eval I Summary Anesthesia Postop Eval I Summary: Anesthesia Postop Eval I: Assessment Summary Airway patent Yes 02/12/24 15:08 ASSOCIATE PROFESSOR OF ENGINEERING.CSIR Spontaneous unlabored Yes 02/12/24 15:08 ASSOCIATE PROFESSOR OF ENGINEERING.CSIR respirations Mental status nausea No 02/12/24 15:08 ASSOCIATE PROFESSOR OF ENGINEERING.CSIR Vomiting No 02/12/24 15:08 ASSOCIATE PROFESSOR OF ENGINEERING.CSIR Anesthesia Postop Eval I: Fluid Summary Crystalloid volume administer 1,000 02/12/24 15:08 ASSOCIATE PROFESSOR OF ENGINEERING.CSIR (ml) Colloids volume administered ( ml) Blood Product volume administered (ml) Total IV fluid infused 1,000 02/12/24 15:08 ASSOCIATE PROFESSOR OF ENGINEERING.CSIR Anesthesia Postop Eval I: Summary Notes Anesthesia Complication No 02/12/24 15:08 ASSOCIATE PROFESSOR OF ENGINEERING.CSIR Anesthesia Complication Comment: Post-operative progress note Anesthesia: Postop Eval II Evaluation Mental status: Awake Pain Level: 0 nausea: No Vomiting: No
[2024-02-12] MEDS: Lactated Ringers 1,000 ML 200 ML IV (17:58)
[2024-02-12] MEDS: Ondansetron 4 MG/2 ML Vial IV (17:58)
[2024-02-12] MEDS: Acetaminophen 500 MG Tablet 1000 MG PO ×2 (18:54→21:34)
[2024-02-12] MEDS: Ketorolac 30 MG/ML Syringe IV (21:34)
[2024-02-12] MEDS: Scopolamine 1mg/72hr Patch 1 PATCH TD (21:34)
[2024-02-12] MEDS: Lactated Ringers 1,000 ML 75 ML IV (22:48)
[2024-02-13 00:49] VITALS: BP 101/63; PULSE 71; RESP 16; TEMP 37.2; O2SAT 98
[2024-02-13] MEDS: oxyCODONE 5 MG Tablet PO ×4 (00:52→19:51)
[2024-02-13] MEDS: 0.9% Saline Lock 10 ML Syringe IV ×2 (02:08→06:48)
[2024-02-13] MEDS: HYDROmorphone 1 MG/ML Syringe IV (02:09)
[2024-02-13 02:53] VITALS: BP 105/60; PULSE 80; RESP 16; TEMP 37.1; O2SAT 96
[2024-02-13 05:47] LABS: Hematocrit 26.7 % (37-47); Hemoglobin 8.4 g/dL (12.0-15.0); Mean Corp Hgb Conc 31.5 g/dL (32-36); Mean Corpuscular Hgb 26.9 pg (27.0-32.0); Mean Corpuscular Volume 85.6 fL (81-99); Mean Platelet Vol. 10.4 fl (6.2-12.0); Platelet Count 310 K/mm3 (150-450); RBC Distribution Width CV 16.5 % (11.6-14.6); Red Blood Count 3.12 M/mm3 (4.2-5.4); White Blood Count 10.1 K/mm3 (4.4-11.0)
[2024-02-13] MEDS: Ketorolac 30 MG/ML Syringe IV ×3 (06:47→21:35)
[2024-02-13] MEDS: Acetaminophen 500 MG Tablet 1000 MG PO ×3 (06:47→21:35)
[2024-02-13 07:14] VITALS: BP 100/65; PULSE 99; RESP 16; TEMP 36.6; O2SAT 98
[2024-02-13 08:00] VITALS: O2SAT 98
--- NOTE | 2024-02-13 08:30 | PCM.PN.BLA ---
Assessment & Plan Assessment/Plan (1) H/O: hysterectomy: PLAN: POD#1 D/C JOHNSON CBC STABLE, chronic fe def. anemia due to chronic blood loss, blood count appropriate ambulate regular diet d/w her surgery an d postop expectations anticipate d/c home later today continued IVF due to lightheadedness, d/c after this bag unless further indications
[2024-02-13] MEDS: Ondansetron 4 MG/2 ML Vial IV (09:15)
[2024-02-13 12:25] LABS: Hematocrit 25.8 % (37-47); Hemoglobin 8.3 g/dL (12.0-15.0); Mean Corp Hgb Conc 32.2 g/dL (32-36); Mean Corpuscular Hgb 27.6 pg (27.0-32.0); Mean Corpuscular Volume 85.7 fL (81-99); Mean Platelet Vol. 10.3 fl (6.2-12.0); Platelet Count 283 K/mm3 (150-450); RBC Distribution Width CV 16.5 % (11.6-14.6); RBC Distribution Width SD 51.5 fl (35.1-43.9); Red Blood Count 3.01 M/mm3 (4.2-5.4); White Blood Count 9.5 K/mm3 (4.4-11.0)
[2024-02-13 13:00] VITALS: BP 98/58; PULSE 80; RESP 16; TEMP 37.6; O2SAT 100
[2024-02-13] MEDS: FLU VACC 2024-25(6MOS UP)/PF 45 MCG/0.5 ML SYRINGE IM (13:51)
[2024-02-13] MEDS: Lactated Ringers 1,000 ML 15 ML IV (13:54)
--- NOTE | 2024-02-13 16:17 | PCM.PN.OB ---
Subjective Subjective patient w/ poorly controlled pain, declines d/c home. Keep overnight for IV pain meds prn breakthrough pain. Objective Data Objective Data Vital Signs: Vital Signs Temp Pulse Resp BP Pulse Ox O2 Del Method O2 Flow Rate 97.9 F 99 16 100/65 98 Room Air 2 02/13/24 07:14 02/13/24 07:14 02/13/24 07:14 02/13/24 07:14 02/13/24 08:00 02/13/24 08:00 02/12/24 18:00 Oxygen Flow Rate (L/min) 2 Oxygen Delivery Method Room Air Weight: 65.7 kg Body Mass Index (BMI) 25.6 Intake & Output: Intake and Output for Last 24 Hours 02/11/24 02/12/24 02/13/24 23:59 23:59 23:59 Intake Total 2302 / 2302 2200 / 2200 Output Total 775 / 775 2600 / 2600 Balance 1527 / 1527 -400 / -400 Lab / Micro Data 02/13/24 12:12 Labs: Laboratory Results - last 24 hr 02/13/24 05:06: WBC 10.1, RBC 3.12 L, Hgb 8.4 L, Hct 26.7 L, MCV 85.6, MCH 26.9 L, MCHC 31.5 L, RDW Std Deviation 52.0 H, RDW Coeff of Patrick 16.5 H, Plt Count 310, MPV 10.4 02/13/24 12:12: WBC 9.5, RBC 3.01 L, Hgb 8.3 L, Hct 25.8 L, MCV 85.7, MCH 27.6, MCHC 32.2, RDW Std Deviation 51.5 H, RDW Coeff of Patrick 16.5 H, Plt Count 283, MPV 10.3
[2024-02-13 19:48] VITALS: BP 107/68; PULSE 74; RESP 16; TEMP 37.3; O2SAT 100
[2024-02-14 02:39] VITALS: BP 110/60; PULSE 82; RESP 16; TEMP 36.6; O2SAT 100
[2024-02-14] MEDS: Ketorolac 30 MG/ML Syringe IV (06:15)
[2024-02-14] MEDS: Acetaminophen 500 MG Tablet 1000 MG PO (06:15)
[2024-02-14] MEDS: oxyCODONE 5 MG Tablet PO ×2 (07:45→12:20)
[2024-02-14] MEDS: Ensure Plus High Protein 120 ML LIQUID PO (07:48)
[2024-02-14 08:00] VITALS: BP 106/64; PULSE 70; RESP 20; TEMP 37.1; O2SAT 100
--- NOTE | 2024-02-14 08:39 | PCM.DC.SUM ---
Providers Date of Admission: 02/12/24 Primary Care Physician: Dr. Jt De Jesus MD Reason For Visit: Hysterectomy,TLH, bilarteral salpin Diagnosis Discharge Diagnosis (1) H/O: hysterectomy: Status: Acute Code(s): Z90.710 - Acquired absence of both cervix and uterus Plan: POD#1 D/C JOHNSON CBC STABLE, chronic fe def. anemia due to chronic blood loss, blood count appropriate ambulate regular diet d/w her surgery an d postop expectations anticipate d/c home later today continued IVF due to lightheadedness, d/c after this bag unless further indications Medications at Discharge Home Medications escitalopram oxalate 5 mg tablet 10 mg PO DAILY 02/05/24 hydroxyzine pamoate 25 mg capsule (Vistaril) 50 mg PO QHS PRN anxiety 02/05/24 acetaminophen 500 mg tablet (Acetaminophen Extra Strength) 1,000 mg (2 x 500 mg) PO Q6H PRN fever or pain #60 tabs 02/12/24 docusate sodium 100 mg capsule (Colace) 100 mg PO BID to prevent constipation, hold if loose stools 10 days #20 caps 02/12/24 ibuprofen 600 mg tablet 600 mg PO Q6H PRN Pain 30 days #60 TABLETS 02/12/24 oxycodone 5 mg tablet 5 mg PO Q6H PRN PRN severe pain 5 days #12 TABLETS 02/12/24 Hospital Course Operations - (TLH with bilateral salpingectomy) Procedures None Summary of Care Provided Minutes Spent on Discharge: 16 Hospital Course: 38-year-old female admitted for total laparoscopic hysterectomy with bilateral salpingectomy and cystoscopy on 02/12/2024 for uterine fibroids and chronic iron deficiency anemia from chronic blood loss. Patient received IV iron the day before surgery. The surgery was completed without difficulty but patient had poor pain control and some nausea and desired to stay overnight. On postoperative day #1 she continued to have poor pain control and was kept overnight for IV breakthrough pain medication. On postoperative day #2 she was ambulating urinating and tolerating regular diet without difficulty. Pain was better controlled. We discussed taking her NSAID and acetaminophen scheduled and oxycodone as needed for breakthrough pain. She is also to use stool softeners and till bowel movement. Postop expectations and restrictions were reviewed. Follow-up in my office in approximately 1 week as scheduled or as needed. Physical Exam Narrative Pain better controlled. Average lochia. Tolerating small amounts of regular diet. Tolerating fluids. No flatus yet. No chest pain or shortness of breath. General: Awake alert no acute distress Abdomen: Moderately distended, soft, some mild rebound no guarding. Incisions are clean dry and intact Assessment plan: Postoperative day #2 status post total laparoscopic hysterectomy. Ready for discharge home. Prescriptions given. Follow-up in my office as scheduled or as needed. Weight / BMI Weight Weight: 65.7 kg Body Mass Index (BMI) 25.6 ABG / Lab / Microbiology Data 02/13/24 12:12 Laboratory: Laboratory Results - last 24 hr 02/13/24 12:12: WBC 9.5, RBC 3.01 L, Hgb 8.3 L, Hct 25.8 L, MCV 85.7, MCH 27.6, MCHC 32.2, RDW Std Deviation 51.5 H, RDW Coeff of Patrick 16.5 H, Plt Count 283, MPV 10.3 D/C Instructions Discharge Diet: Light diet - advance as tolerated May shower in (days): 1 May resume sexual activity in: 6-8 weeks and - (Nothing in your vagina for 6 weeks. No vaginal or anal intercourse for 6-8 weeks) Call your doctor if your incision/area has: Continuous Slow Oozing, Sudden Increased Bleeding and Foul Smelling Discharge Call your doctor if you observe: Fever of 101 or Higher Cleanse incision/area with: Soap & Water and - (Your incisions have skin glue, it can get wet, leave the glue on until it falls off. ) Additional Dressing/Incision Instructions: No tampons, intercourse, tub baths, swimming pools or anything in your vagina for 6 weeks. Pending Tests Upon Discharge: I recommend following up with an ENT- Ears, nose and throat specialist to have your throat examined. Please Follow Up With: Roselia Angel MD When: With my office in 1-2 and 6 weeks or as needed. [phone] Send a [employer] message for non urgent inquiries. Meaningful Use Info Meaningful Use Meaningful Use Diagnoses (Choose all that apply): None applicable Ischemic Stroke Statin Dosing Therapy Reference: STATIN DOSE THERAPY REFERENCE: * Patients > 75 years receive moderate or high dose statin therapy. * Patients 75 years or YOUNGER should receive HIGH intensity statin dose unless contraindicated. You will be required to document reason for non-treatment if statin daily dose does not meet guidelines. HIGH DOSE STATIN THERAPY DAILY Atorvastatin > than or = to 40 mg Rosuvastatin > than or = to 20 mg Amlodipine + Atorvastatin > than or = to 2.5/40 mg Ezetimibe + Simvastatin 10/80 mg Simvastatin 80mg Discharge Plan Admission Admit Date/Time: 02/12/24 17:51 Primary Reason for Your Visit: Hysterectomy Attending Provider: Roselia Angel Primary Care Provider: Jt De Jesus Discharge Orders/Prescriptions Prescriptions: New ibuprofen 600 mg tablet 600 mg PO Q6H PRN (Reason: Pain) 30 Days Qty: 60 1RF oxycodone 5 mg tablet 5 mg PO Q6H PRN PRN (Reason: severe pain) 5 Days Qty: 12 0RF acetaminophen [Acetaminophen Extra Strength] 500 mg tablet 1,000 mg PO Q6H PRN (Reason: fever or pain) Qty: 60 0RF docusate sodium [Colace] 100 mg capsule 100 mg PO BID 10 Days Qty: 20 0RF No Action escitalopram oxalate 5 mg tablet 10 mg PO DAILY hydroxyzine pamoate [Vistaril] 25 mg capsule 50 mg PO QHS PRN (Reason: anxiety) Referrals / Follow Up: Piter Noble MD [Med Staff - E Business Project Manager] - Disposition Discharge Orders: Discharge Patient (Routine); Ordered 02/14/24 Ordered By: Dr. Roselia Angel
[2024-02-14 11:54] VITALS: BP 107/55; PULSE 72; RESP 19; TEMP 36.8; O2SAT 100
== END 2024-02-14 12:30 | disposition home or self-care (01) ==
LOC: SDC 17:59 → MS3 17:59
PROVIDERS: Anesthesiology; Admitting Provider Obstetrics & Gynecology; PCP Family Medicine; Referring Provider Obstetrics & Gynecology; Visit Provider Obstetrics & Gynecology
PROC: 0UT94ZZ Resection of Uterus, Percutaneous Endoscopic Approach (ICD-10-PCS; CPT 58571; principal; 2024-02-12 10:55)
DX: D25.1 Intramural leiomyoma of uterus (principal); D50.0 Iron deficiency anemia secondary to blood loss (chronic); Z87.891 Personal history of nicotine dependence; R11.0 Nausea; N92.0 Excessive and frequent menstruation with regular cycle; N93.9 Abnormal uterine and vaginal bleeding, unspecified; N94.6 Dysmenorrhea, unspecified; Z23 Encounter for immunization; B00.9 Herpesviral infection, unspecified; Z79.899 Other long term (current) drug therapy
CPT/HCPCS: 58571; 00840; 36415; 81025; 82962; 83735; 85027; 88307; 90656; 96361; 96374; 96375; 96376; 99221; 99406; J7120; A4216; G0378; J2405; J3475

== ENCOUNTER 2024-02-23 05:07 | Emergency (ER) | payer OTHER, SELFPAY ==
[2024-02-23 05:08] VITALS: BP 117/78; PULSE 90; RESP 18; TEMP 37.2; O2SAT 98; BMI 25.0
--- NOTE | 2024-02-23 05:21 | CT_ITS ---
EXAM: CT Abdomen And Pelvis W/ Contrast Injection HISTORY: pain after hysterectomy HYSTER ON 02/12/24, STILL HAVING PAIN, N/V, PT STATES SHE IS UNABLE TO EAT ANY FOOD TECHNIQUE: Routine protocol CT abdomen pelvis. IV Contrast: IV 75mL [id number] . Oral Contrast: without. Sagittal and coronal images were reconstructed. RADIATION DOSAGE (If Supplied By Facility): CTDIvol = ( 7.67 ) mGy, DLP = ( 345.74 ) mGycm Individualized dose optimization techniques were used for this CT. COMPARISON: CT abdomen and pelvis 09/03/2023. LIMITATIONS: None. FINDINGS: LOWER CHEST: Lung bases are clear. LIVER: Unremarkable. GALLBLADDER/BILE DUCTS: Unremarkable. PANCREAS: Unremarkable. SPLEEN: Unremarkable. ADRENAL GLANDS: Unremarkable. KIDNEYS / URETERS: Unremarkable. BOWEL / MESENTERY: Unremarkable. No bowel obstruction. APPENDIX: Identified and normal. No evidence of acute appendicitis. PERITONEUM: No free air. Small amount of free fluid in the pelvis. VESSELS: Abdominal aorta is normal caliber. RETROPERITONEUM: Unremarkable. REPRODUCTIVE ORGANS: Uterus is surgically absent. Mild stranding in the region. No localized collection. 2.2 cm low-attenuation structure in the right adnexa likely ovarian cyst/follicle. BLADDER: Minimally distended. ABDOMINAL WALL: Unremarkable. BONES: No acute abnormality. OTHER: None. CT/Abdomen/Pelvis W IV Cont ONLY IMPRESSION: Mild stranding in the pelvis postsurgical changes posthysterectomy. No localized collection or abscess. . Electronically Signed: Keyla Parker MD at 6:34 EDT ,
--- NOTE | 2024-02-23 05:22 | EX.ED.DYSGE1 ---
HPI History of Present Illness Chief Complaint: Complaint Detail of Chief Complaint: Abdominal pain Informant: patient Narrative Narrative: Patient presents with abdominal pain that started about a week ago after she had her hysterectomy. She states she was sent home with oxycodone 12 tabs and ibuprofen. She finished her oxycodone and continues to have pain. She tells me she has had fevers up to oh 101 at home intermittently. Patient denies nausea or vomiting. She describes some mild dysuria. Denies any significant vaginal bleeding. Currently rates her pain an 8 out of 10. Pain worse with movement. PFSH PFS Medical History Back pain Migraine headache Injury of head and neck Gastric reflux Smoker Shortness of breath on exertion History of pain when walking History of stress test Cardiology follow-up encounter Syncope Chest pain Marijuana use Encounter for sterilization Anemia Bipolar disorder (manic depression) ADD (attention deficit disorder) Anxiety Depression HSV (herpes simplex virus) infection Home Medications ?Medication ?Instructions ?Recorded ?Last Taken ?Type escitalopram oxalate 5 mg tablet 10 mg PO DAILY 02/05/24 02/12/24 History hydroxyzine pamoate 25 mg capsule 50 mg PO QHS PRN anxiety 02/05/24 02/12/24 History (Vistaril) acetaminophen 500 mg tablet 1,000 mg (2 x 500 mg) PO Q6H PRN 02/12/24 Unknown Rx (Acetaminophen Extra Strength) fever or pain #60 tabs docusate sodium 100 mg capsule 100 mg PO BID to prevent 02/12/24 Unknown Rx (Colace) constipation, hold if loose stools 10 days #20 caps ibuprofen 600 mg tablet 600 mg PO Q6H PRN Pain 30 days #60 02/12/24 Unknown Rx TABLETS oxycodone 5 mg tablet 5 mg PO Q6H PRN PRN severe pain 5 02/12/24 Unknown Rx days #12 TABLETS oxycodone-acetaminophen 5 mg-325 1 tab PO Q8H PRN pain 3 days #10 02/23/24 Unknown Rx mg tablet (Percocet) tabs Allergy/AdvReac Type Severity Reaction Status Date / Time Environmental Allergies: Allergy Intermediate Other Verified 02/23/24 05:08 Uncoded (dust mites) chocolate flavor Allergy Upset Verified 02/23/24 05:08 Stomach Family History Father CVA (cerebral vascular accident) Mother Cancer Grandmother Cancer Grandmother Alcoholism Father Alcoholism Mother Alcoholism Surgical History Hx of lymph node biopsy Delivery by section History of surgery Social History Smoking Status: Never smoker ROS ROS ED Review of Systems ROS Unobtainable: other Constitutional Constitutional ED: Reports fever(s) and lethargy; Denies chills, sweats or weight loss Eyes Eyes: Denies blurry vision, change in vision or diplopia ENT ENT ED: Denies rhinorrhea or sore throat Cardiovascular Cardiovascular: Denies chest pain, orthopnea or racing heartbeat Respiratory/Chest Respiratory/Chest: Denies cough, dyspnea, dyspnea on exertion, orthopnea or sputum Gastrointestinal Gastrointestinal: Reports abdominal pain; Denies diarrhea, nausea or vomiting Genitourinary Genitourinary ED: Reports dysuria; Denies hematuria or urinary frequency Musculoskeletal Musculoskeletal: Denies arthralgias, back pain, myalgias or neck pain Integumentary Denies abscess, Abrasions or rash Neurologic Neurologic: Denies headache(s) or weakness Psychiatric Psychiatric: Denies anxiety, depression or suicidal thoughts Endocrine Endocrinology: Denies polydipsia, polyphagia or polyuria Hematologic/Lymphatic Hematologic/Lymphatic: Denies easy bleeding, easy bruising or lymphadenopathy Allergic/Immunologic Allergic/Immunologic ED: Denies mouth swelling, tongue swelling or urticaria EXAM Physical Exam Const Vital Signs: 02/23/24 05:08 Temperature 99.0 F Temperature Source Oral Pulse Rate 90 Respiratory Rate 18 Blood Pressure 117/78 Blood Pressure Mean 91 Pulse Ox 98 Oxygen Delivery Method Room Air Positive well nourished and well developed General Appearance ED: well developed and NAD HEENT Reports TM's clear and moist mucous membranes normocephalic and atraumatic; Negative for trauma or tenderness Tympanic Membrane ED: Yes TM's clear Eyes PERRL and EOMs intact bilaterally General Eye ED: Negative for pale conjunctiva or scleral icterus Neck no lymphadenopathy, supple and no JVD General: Negative for tenderness Chest Wall inspection of chest normal and palpation of chest normal Chest: Negative for tenderness Resp normal respiratory effort and clear to auscultation bilaterally Effort and Inspection: Negative for respiratory distress or pain with movement Auscultation: Negative for rhonchi, wheezes or diminished lung sounds Cardio regular rate, regular rhythm, S1 normal heart sound, S2 normal heart sound and no murmurs Peripheral Pulses: pulses 2+ throughout GI normal to inspection, nondistended, normoactive bowel sounds, soft to palpation, non-distended and no masses GI Narrative: Patient with diffuse tenderness palpation over suprapubic region with guarding. There is no rebound, rigidity, or peritoneal signs. She has surgical ports to the anterior abdomen that are healed well and there is no evidence of erythema or infection. Back/Spine no CVA tenderness and no thoracic nor lumbar tenderness Extremity normal to inspection General Extremety ED: Negative for edema General Extremity: Negative for edema Neuro oriented x3, CN's II-XII intact bilaterally, no sensory deficits noted and gait normal Sensorium / Orientation: awake, alert, oriented to person, oriented to place and oriented to time Motor Exam: strength 5/5 throughout and strength abnormal Psych mental status grossly normal Skin no rashes or lesions noted and no wounds MDM MDM MDM Narrative Medical decision making narrative: Patient presents with lower abdominal pain after hysterectomy. In the differential would be UTI versus postop pain due to infectious etiology given history of fever. Also differential would be appendicitis or other acute intra-abdominal process. IV line established. She was medicated morphine and Zofran. CBC with differential obtained showed a white count 7.7 with hemoglobin 9.6 and platelet count of 444. Chemistries unremarkable. Urinalysis without signs of infection. She had a CT scan of the abdomen pelvis with IV contrast that showed mild stranding in the pelvis postsurgical changes post hysterectomy with no evidence of abscess or localized collection. At this point we will discuss case with Dr. Roselia Angel or physician covering. Lab Data Attestation: I reviewed the patient's lab results. Labs: Laboratory Results - last 24 hr 02/23/24 02/23/24 05:15 06:06 WBC 7.7 RBC 3.36 L Hgb 9.6 L Hct 28.3 L MCV 84.2 MCH 28.6 MCHC 33.9 RDW Std Deviation 58.5 H RDW Coeff of Patrick 19.3 H Plt Count 444 MPV 9.5 Immature Gran % (Auto) 0.500 Neut % (Auto) 57.3 Lymph % (Auto) 26.6 [place] % (Auto) 7.9 Eos % (Auto) 6.9 H Baso % (Auto) 0.8 Absolute Neuts (auto) 4.4 Absolute Lymphs (auto) 2.04 Nucleated RBC % 0 Sodium 135 L Potassium 3.5 Chloride 108 H Carbon Dioxide 20.0 L Anion Gap 7 BUN 6 L Creatinine 0.85 Estim Creat Clear Calc 80.81 Est GFR (MDRD) Af Amer 96 Est GFR (MDRD) Non-Af 79 BUN/Creatinine Ratio 7.0 L Glucose 103 Calcium 8.9 Urine Color Yellow Urine Clarity Clear Urine pH 6.5 Ur Specific [place] 1.005 Urine Protein 15 H Urine Glucose (UA) Normal Urine Ketones Negative Urine Occult Blood 50 H Urine Nitrite Negative Urine Bilirubin Negative Urine Urobilinogen Normal Ur Leukocyte Esterase 100 H Urine RBC 5-10 SEEN Urine WBC 10-25 SEEN Ur Squamous Epith Cells 5-10 SEEN Urine Bacteria RARE Hyaline Casts 0-5 SEEN Fine Granular Casts 0-5 SEEN Urine Mucus RARE Radiography Diagnostic Testing: Clinical Impression(s) from Imaging Studies Abdomen/Pelvis CT 02/23/24 05:21 IMPRESSION: Mild stranding in the pelvis postsurgical changes posthysterectomy. No localized collection or abscess. . Electronically Signed: Keyla Parker MD at 6:34 EDT , Discharge Plan Triage Chief Complaint: Complaint ED Provider: Magui Nieves Dx/Rx/DC Orders Clinical Impression: Post-operative pain Instructions: ED Post Op Wound Check, Pain Prescriptions: New oxycodone-acetaminophen [Percocet] 5-325 mg tablet 1 tab PO Q8H PRN (Reason: pain) 3 Days Qty: 10 0RF No Action escitalopram oxalate 5 mg tablet 10 mg PO DAILY hydroxyzine pamoate [Vistaril] 25 mg capsule 50 mg PO QHS PRN (Reason: anxiety) ibuprofen 600 mg tablet 600 mg PO Q6H PRN (Reason: Pain) 30 Days Qty: 60 1RF oxycodone 5 mg tablet 5 mg PO Q6H PRN PRN (Reason: severe pain) 5 Days Qty: 12 0RF acetaminophen [Acetaminophen Extra Strength] 500 mg tablet 1,000 mg PO Q6H PRN (Reason: fever or pain) Qty: 60 0RF docusate sodium [Colace] 100 mg capsule 100 mg PO BID 10 Days Qty: 20 0RF Primary Care Provider: Jt De Jesus Referrals: Jt De Jesus MD [Primary Care Provider] - Roselia Angel MD [Med Staff - Active Staff] - 3-5 Days Print Language: Monegasque Disposition Disposition: Home, Self Care
[2024-02-23] MEDS: Ondansetron 4 MG/2 ML Vial IV (05:28)
[2024-02-23] MEDS: Morphine 4 MG/ML Syringe IV ×2 (05:30→06:18)
[2024-02-23 05:31] LABS: Absolute Lymphocyte Count 2.04 X10^3/uL (0.83-4.51); Absolute Neutrophil Count 4.4 X10^3/uL (2.0-7.7); Basophil# 0.06 X10^3/uL; Basophil% 0.8 % (0-1); Eosinophil# 0.53 X10^3/uL; Eosinophils% 6.9 % (0-5); Hematocrit 28.3 % (37-47); Hemoglobin 9.6 g/dL (12.0-15.0); Lymphocyte # 2.04 X10^3/ul (0.83-4.51); Lymphocyte % 26.6 % (19-41); Mean Corp Hgb Conc 33.9 g/dL (32-36); Mean Corpuscular Hgb 28.6 pg (27.0-32.0); Mean Corpuscular Volume 84.2 fL (81-99); Mean Platelet Vol. 9.5 fl (6.2-12.0); Monocyte# 0.61 X10^3/uL; Monocyte% 7.9 % (0-10); NRBC Flagged by Analyzer 0 % (0-5); Neutrophil % 57.3 % (47-70); Platelet Count 444 K/mm3 (150-450); RBC Distribution Width CV 19.3 % (11.6-14.6); RBC Distribution Width SD 58.5 fl (35.1-43.9); Red Blood Count 3.36 M/mm3 (4.2-5.4); White Blood Count 7.7 K/mm3 (4.4-11.0)
[2024-02-23 05:51] LABS: Anion Gap 7 (5-15); BUN 6 mg/dL (7-18); Calcium,Total 8.9 mg/dL (8.5-10.1); Chloride 108 mmol/L (98-107); Creatinine, Serum 0.85 mg/dL (0.55-1.02); EST Glomerular Filtration Rate 79 mL/min (>60); Est Glom Filt Rate - Afr Amer 96 mL/min (>60); Estimated Creatinine Clearance 80.81 ml/min; Glucose 103 mg/dL (74-106); Potassium 3.5 mmol/L (3.5-5.1); Sodium Level 135 mmol/L (136-145)
[2024-02-23 06:31] LABS: Color, Urine Yellow (Yellow); Glucose, Dipstick Normal (Normal); Ketone-Dipstick Negative (Negative); Leukocyte Esterase-Dipstick 100 /ul (Negative); Nitrite-Dipstick Negative (Negative); Occult Blood-Urine 50 /ul (Negative); Protein-Dipstick 15 mg/dl (Negative); Specific Gravity, Urine 1.005 (1.002-1.030); Urine Bilirubin Dipstick Negative (Negative); Urine Clarity Clear (Clear); Urine Urobilinogen Normal (Normal); Urine pH 6.5 (5.0 - 8.0)
[2024-02-23 06:45] LABS: Bacteria RARE /hpf (None Seen); Fine Granular Cast- Urine 0-5 SEEN /lpf (0-5); Hyaline Cast 0-5 SEEN /lpf (0-5); Mucous, Urine RARE /hpf (<or=2+); Red Blood Cells-Urine 5-10 SEEN /hpf (0-5); Squamous Epithelial Cells - UA 5-10 SEEN /hpf (5-10); White Blood Cells 10-25 SEEN /hpf (0-5)
[2024-02-23 07:07] VITALS: BP 134/78; PULSE 64; RESP 18; TEMP 36.4; O2SAT 99
== END 2024-02-23 07:12 | disposition home or self-care (01) ==
PROVIDERS: Emergency Provider Emergency Medicine; PCP Family Medicine; Visit Provider Emergency Medicine
DX: G89.18 Other acute postprocedural pain (principal); R10.30 Lower abdominal pain, unspecified; R50.9 Fever, unspecified; Z90.710 Acquired absence of both cervix and uterus; R30.0 Dysuria
CPT/HCPCS: 74177; 80048; 81001; 85025; 96374; 96375; 96376; 99282; Q9967; A4216; J2405

== ENCOUNTER → 2024-03-11 | Outpatient (CLI) | payer OTHER, SELFPAY ==
[2024-03-11 15:35] LABS: Absolute Lymphocyte Count 2.16 X10^3/uL (0.83-4.51); Absolute Neutrophil Count 2.2 X10^3/uL (2.0-7.7); Basophil# 0.04 X10^3/uL; Basophil% 0.8 % (0-1); Eosinophil# 0.45 X10^3/uL; Eosinophils% 8.7 % (0-5); Hemoglobin 10.9 g/dL (12.0-15.0); Lymphocyte # 2.16 X10^3/ul (0.83-4.51); Lymphocyte % 41.6 % (19-41); Mean Corpuscular Hgb 29.4 pg (27.0-32.0); Mean Corpuscular Volume 88.9 fL (81-99); Mean Platelet Vol. 9.9 fl (6.2-12.0); Monocyte# 0.38 X10^3/uL; Monocyte% 7.3 % (0-10); NRBC Flagged by Analyzer 0 % (0-5); Neutrophil # 2.15 X10^3/uL (2.7-7.7); Neutrophil % 41.4 % (47-70); Platelet Count 306 K/mm3 (150-450); RBC Distribution Width CV 18.6 % (11.6-14.6); Red Blood Count 3.71 M/mm3 (4.2-5.4); White Blood Count 5.2 K/mm3 (4.4-11.0)
[2024-03-11 16:21] LABS: Iron 95 ug/dL (50-170); Iron Binding Capacity,Total 231 ug/dL (250-450); PERCENT IRON SATURATION 41.1 % (15.0-55.0)
[2024-03-11 16:26] LABS: ALB/GLOB Ratio 0.8 RATIO (0.9-2.4); AST(SGOT) 19 U/L (15-37); Alanine Aminotransfer ALT/SGPT 15 U/L (13-56); Albumin, Serum 3.4 g/dL (3.2-5.0); Alkaline Phosphatase 60 U/L (45-117); Anion Gap 4 (5-15); BUN 7 mg/dL (7-18); BUN/Creat Ratio 8.8 RATIO (10-20); Calcium,Total 8.7 mg/dL (8.5-10.1); Chloride 107 mmol/L (98-107); Cholesterol 192 mg/dL (200); Creatinine, Serum 0.79 mg/dL (0.55-1.02); EST Glomerular Filtration Rate 86 mL/min (>60); Est Glom Filt Rate - Afr Amer 104 mL/min (>60); Glucose 81 mg/dL (74-106); High Density Lipoprotein 79 mg/dL; Protein, Total 7.4 g/dL (6.4-8.2); Sodium Level 138 mmol/L (136-145); Triglycerides 80 mg/dL; Very Low Density Lipoprotein 16 mg/dL (5-40)
[2024-03-11 17:42] LABS: Vitamin D,25 Hydroxy 12.9 ng/mL
== END | disposition home or self-care (01) ==
LOC: LAB 15:01
PROVIDERS: Family Medicine; PCP Family Medicine; Referring Provider Physician Assistant Medical; Visit Provider Physician Assistant Medical
DX: R00.2 Palpitations (principal); Z13.220 Encounter for screening for lipoid disorders; R53.83 Other fatigue; Z13.1 Encounter for screening for diabetes mellitus
CPT/HCPCS: 36415; 80053; 80061; 82306; 83540; 83550; 84443; 85025

== ENCOUNTER → 2024-03-26 | Outpatient (CLI) | payer OTHER, SELFPAY | END | disposition home or self-care (01) | LOC: PSN 08:09 | PROVIDERS: PCP Family Medicine; Referring Provider Physician Assistant Medical; Visit Provider Physician Assistant Medical | DX: R00.2 Palpitations (principal) | CPT/HCPCS: 93225; 93226 ==

== ENCOUNTER 2024-06-22 01:06 | Emergency (ER) | payer OTHER, SELFPAY ==
[2024-06-22 01:07] VITALS: BP 114/61; PULSE 77; RESP 18; TEMP 36.7; O2SAT 99; BMI 26.4
--- NOTE | 2024-06-22 01:59 | EDS_ITS ---
HPI History of Present Illness Chief Complaint: Upper Extremity Injury Narrative Narrative: Chief complaint and HPI: Left shoulder pain. 38-year-old female presents for evaluation of left shoulder pain after an injury. Patient states prior to arrival she was hanging on a pole in her basement trying to do a trick when she fell onto her left upper extremity. Patient states that she felt as if her left upper extremity gave out. She endorses pain in her left shoulder that radiates down into the left elbow. She denies any numbness or tingling. Denies injury elsewhere. She is left-handed. Denies any pain in the left hand or wrist. Pain is worse with movement. Took ibuprofen prior to arrival. Review of systems: See HPI Medications: As listed on the chart Allergies: As listed on the chart PFSH: Per chart Vital signs: As listed on the chart. Reviewed. Physical exam: Gen: A&O x3, NAD Head: Normocephalic, atraumatic Eyes: No sclera icterus, conjunctiva clear ENT: Moist mucous membranes Neck: Trachea midline, No JVD, full range of motion, nontender, no midline spina l tenderness CV: RRR, no murmurs, no peripheral edema Resp: Lungs CTA BL, no w/r/c Musc: Limited range of motion of the left upper extremity secondary to pain, left shoulder is tender to palpation diffusely as well as in the trapezius muscle distribution, shoulder does not appear dislocated, no obvious signs of injury such as swelling or ecchymosis, upper arm tender to palpation, full range of motion of the elbow, full range of motion of the wrist and fingers. Good capillary refill. Sensation intact. Radial and ulnar pulse +2 Skin: Warm, dry Neuro: Alert, oriented, grossly intact, sensation intact Psych: Cooperative, appropriate mood and affect [facility] Medical History Back pain Migraine headache Injury of head and neck Gastric reflux Smoker Shortness of breath on exertion History of pain when walking History of stress test Cardiology follow-up encounter Syncope Chest pain Marijuana use Encounter for sterilization Anemia Bipolar disorder (manic depression) ADD (attention deficit disorder) Anxiety Depression HSV (herpes simplex virus) infection Home Medications ?Medication ?Instructions ?Recorded ?Last Taken ?Type hydroxyzine pamoate 25 mg capsule 50 mg PO QHS PRN anx iety 02/05/24 02/12/24 History (Vistaril) sertraline 25 mg tablet (Zoloft) 25 mg PO QDAY 4 Unknown History Allergy/AdvReac Type Severity Reaction Status Date / Time Environmental Allergies: Allergy Intermediate Other Verified 06/22/24 01:07 Uncoded (dust mites) chocolate flavor Allergy Upset Verified 06/22/24 01:07 Stomach Family History Father CVA (cerebral vascular accident) Mother Cancer Grandmother Cancer Grandmother Alcoholism Father Alcoholism Mother Alcoholism Surgical History Hx of lymph node biopsy Delivery by section History of surgery Social History Smoking Status: Current every day smoker tobacco type: e-cigarettes EXAM Physical Exam Const Vital Signs: 06/22/24 01:07 Temperature 98.1 F Temperature Source Oral Pulse Rate 77 Respiratory Rate 18 Blood Pressure 114/61 Blood Pressure Mean 78 Pulse Ox 99 Oxygen Delivery Method Room Air MDM MDM MDM Narrative Medical decision making narrative: 38-year-old female presents for evaluation of left shoulder pain after an injury. Differential diagnosis includes but is not limited to myofascial spasm/strain, left upper extremity contusion, fracture, dislocation. Patient took ibuprofen prior to arrival therefore oxycodone given. X-rays of the left shoulder, humerus, elbow obtained. X-rays were reviewed without dislocation or fracture. No clear etiology to explain patient's pain. On reevaluation, patient still endorsing pain. Patient will be placed in a sling for comfort. She will be given Tylenol prior to discharge home. She was given education on RICE therapy. Patient has to follow-up with PCP. If symptoms do not improve in the next several days patient is to follow-up with orthopedics. She confirmed understand the plan. Return precautions explained. Impression: 1. Left upper extremity contusion 2. Fall Discharge Plan Triage Chief Complaint: Upper Extremity Injury ED Provider: Dada Royal Dx/Rx/DC Orders Clinical Impression: Contusion of arm, left Instructions: RICE, Bruises (Contusions), ED Soft Tissue Contusion, ED Shoulder Pain, Uncertain Cause Prescriptions: No Action sertraline [Zoloft] 25 mg tablet 25 mg PO QDAY hydroxyzine pamoate [Vistaril] 25 mg capsule 50 mg PO QHS PRN (Reason: anxiety) Primary Care Provider: Jt De Jesus Referrals: Anatoliy Naylor DO [Med Staff - Active Staff] - 3-5 Days Jt De Jesus MD [Primary Care Provider] - 3-5 Days Activity Restrictions/Additional Instructions: Tylenol and ibuprofen as needed for pain. Sling for comfort. You did receive Tylenol here in the emergency department. No Tylenol for 6 hours. Follow-up with primary care physician. If pain does not improve in the next several days follow-up with orthopedic surgeon. Return back to the ED if symptoms change or worsen to Print Language: Sami Disposition Disposition: Home, Self Care Discharge Date/Time: 06/22/24 03:37
--- NOTE | 2024-06-22 02:00 | RAD_ITS ---
PROCEDURE: SHOULDER MIN 2 VIEWS REASON FOR EXAM: 38-year-old female, left shoulder pain. TECHNIQUE: One (4) views of the left shoulder COMPARISON: None. FINDINGS: No fracture. No suspicious bone lesion. Normal alignment of the acromioclavicular and glenohumeral joints. Soft tissues are unremarkable. RAD/Shoulder min 2 Views IMPRESSION: Negative left shoulder radiographs. Reading Location: [id number]
--- NOTE | 2024-06-22 02:01 | RAD_ITS ---
PROCEDURE: ELBOW MIN 3 VIEWS REASON FOR EXAM: 38-year-old female, left arm pain. TECHNIQUE: 3 view(s) of the left elbow COMPARISON: None. FINDINGS: No visible fracture. No suspicious bone lesion. Normal alignment. No effusion. Soft tissues are unremarkable. RAD/Elbow min 3 Views IMPRESSION: NEGATIVE BILATERAL ELBOW SERIES Reading Location: [id number]
--- NOTE | 2024-06-22 02:05 | RAD_ITS ---
PROCEDURE: HUMERUS MIN 2 VIEWS REASON FOR EXAM: 38-year-old female, left shoulder/arm pain. TECHNIQUE: 2 view(s) of the left humerus COMPARISON: None. FINDINGS: No fracture. No suspicious bone lesion. Normal alignment at the shoulder and elbow. Soft tissues are unremarkable. RAD/Humerus min 2 Views IMPRESSION: Negative left humerus radiographs. Reading Location: [id number]
[2024-06-22] MEDS: oxyCODONE 5 MG Tablet PO (02:22)
[2024-06-22] MEDS: Acetaminophen 500 MG Tablet 1000 MG PO (03:34)
[2024-06-22 03:36] VITALS: BP 114/60; PULSE 74; RESP 16; TEMP 36.7; O2SAT 99
== END 2024-06-22 03:37 | disposition home or self-care (01) ==
PROVIDERS: Emergency Provider Surgery; PCP Family Medicine; Visit Provider Surgery
DX: S40.022A Contusion of left upper arm, initial encounter (principal); F31.9 Bipolar disorder, unspecified; M25.512 Pain in left shoulder; F41.9 Anxiety disorder, unspecified; F98.8 Other specified behavioral and emotional disorders with onset usually occurring in childhood and adolescence; W19.XXXA Unspecified fall, initial encounter
CPT/HCPCS: 73030; 73060; 73080; 99284

== ENCOUNTER 2025-03-02 14:41 | Emergency (ER) | payer OTHER, SELFPAY ==
[2025-03-02 14:41] VITALS: BP 128/51; PULSE 89; RESP 16; TEMP 36.8; O2SAT 100; BMI 25.5
--- NOTE | 2025-03-02 15:49 | EX.ED.VIS.PS ---
HPI HPI - Psych History of Present Illness Chief Complaint: Suicidal Informant: patient, parent and spouse/S.O. Onset/Context/Timing Onset: Month(s) Context: Gradual Onset Timing: Continuous Current Severity: Mild Maximum Severity: Mild Associated Symptoms Associated Symptoms - Psych: Positive for Depressed Specific plan (suicidal thought): None Narrative Narrative: 39-year-old female history of bipolar, anxiety, depression and ADD. Currently on no medications for mental health and not seeing a psychiatrist nor therapist nor the counseling center. Recently has had some suicidal thoughts but denies any attempts recently 6 months ago or so she did try to overdose on Zoloft. She was on Zoloft up until last several months she said it did help her mental health but she did not like the side effects so she took herself off of it. States that she has never been admitted to a mental health hospital. Said has been just been a lot of stress and her states that she tries to be a perfectionist and then comes down herself hard when she falls short of that goal. Patient is accompanied by her and her mom and 9 of the 3 of them feel she needs to be admitted. Prior similar symptoms: Yes Recent Illness/Hospitalization: No PFSH PFSH Medical History Instability of left shoulder joint Left shoulder pain Back pain Migraine headache Injury of head and neck Gastric reflux Smoker Shortness of breath on exertion History of pain when walking History of stress test Cardiology follow-up encounter Syncope Chest pain Marijuana use Encounter for sterilization Anemia Bipolar disorder (manic depression) ADD (attention deficit disorder) Anxiety Depression HSV (herpes simplex virus) infection Home Medications ?Medication ?Instructions ?Recorded ?Last Taken ?Type NK 03/02/25 Unknown History Allergy/AdvReac Type Severity Reaction Status Date / Time Environmental Allergies: Allergy Intermediate Other Verified 03/02/25 14:46 Uncoded (dust mites) milk Allergy Mild GI upset Verified 03/02/25 14:46 chocolate flavor Allergy Upset Verified 03/02/25 14:46 Stomach Family History Father CVA (cerebral vascular accident) Mother Cancer Grandmother Cancer Grandmother Alcoholism Father Alcoholism Mother Alcoholism Surgical History Hx of lymph node biopsy Delivery by section History of surgery Social History Smoking Status: Former smoker ROS ROS ED ROS Narrative Denies recent illness other than a URI several weeks ago. Constitutional Constitutional ED: Denies chills or fever(s) Eyes Eyes: Denies blurry vision ENT ENT ED: Denies ear pain Cardiovascular Cardiovascular: Denies chest pain Respiratory/Chest Respiratory/Chest: Denies cough or dyspnea Gastrointestinal Gastrointestinal: Denies abdominal pain Genitourinary Genitourinary ED: Denies dysuria or hematuria Musculoskeletal Musculoskeletal: Denies arthralgias Integumentary Denies abscess or Abrasions Neurologic Neurologic: Denies headache(s) Psychiatric Psychiatric: Denies anxiety or depression Endocrine Endocrinology: Denies polydipsia or polyphagia Hematologic/Lymphatic Hematologic/Lymphatic: Denies easy bleeding, easy bruising or lymphadenopathy Allergic/Immunologic Allergic/Immunologic ED: Denies mouth swelling, tongue swelling or urticaria EXAM Physical Exam Narrative Exam Narrative: Well-appearing 39-year-old female sitting upright in bed. No acute distress. Accompanied by her mom and . Vital signs are stable afebrile. No distress. She is awake alert. She is cooperative and interactive. She is not violent. She is not verbally abusive. H EENT exam pupils round react light. Moist mutes membranes. No signs of trauma to her face or scalp. Neck nontender no trauma. Back nontender. Lungs clear to auscultation bilaterally. Heart regular rhythm no murmur. Chest wall ribs nontender. Abdomen soft nontender. Moving all 4 extremities. Nontender no edema. Normal range of motion. Normal strength. No track park. Neurologically she is awake alert. Answering questions following commands. Const Vital Signs: 03/02/25 14:41 03/02/25 16:31 Temperature 98.2 F Temperature Source Oral Pulse Rate 89 74 Respiratory Rate 16 14 Blood Pressure 128/51 H 120/76 Blood Pressure Mean 76 90 Pulse Ox 100 100 Oxygen Delivery Method Room Air Room Air MDM MDM MDM Narrative Medical decision making narrative: 39-year-old female history of bipolar disorder with depression and stress. Currently is off medications. Is not seeing any type of mental health professional. But is sent in today by her primary care physician. She denies being suicidal. Denies any recent attempts. An attempt 6 months ago by overdose. All of her manager social services talk to her and will come up with a plan. Again both the patient, in the room and mom do not feel she needs to be admitted. Repeat exam patient is doing well at 4:40 PM. She and family are comfortable to her going home. mobile home lot utility worker talked to her and the family and she feels comfortable with her being discharged home with outpatient follow-up. She will be discharged to follow-up with the [facility]. Patient is okay to return if she has no tolerance. History & Record Review Discussion w/independent historian: Patient and Family Additional record(s) reviewed:: Prior inpatient record, Prior outpatient record, Prior ED visit and Prior labs Lab Data Labs: Laboratory Results - last 24 hr 03/02/25 15:47 Urine Opiates Screen NEGATIVE U Buprenorphine Qual NEGATIVE Ur Oxycodone Screen NEGATIVE Urine Methadone Screen NEGATIVE Urine Fentanyl Screen NEGATIVE Ur Barbiturates Screen NEGATIVE Ur Phencyclidine Scrn NEGATIVE Ur Amphetamines Screen NEGATIVE U Benzodiazepines Scrn NEGATIVE Urine Cocaine Screen PRESUMPTIVE POSITIVE U Cannabinoids Screen PRESUMPTIVE POSITIVE Discharge Plan Triage Chief Complaint: Suicidal ED Provider: Elpidio Batres Dx/Rx/DC Orders Clinical Impression: Depression, History of bipolar disorder Instructions: ED Depression Prescriptions: No Action NK Primary Care Provider: Jt De Jesus Referrals: Jt De Jesus MD [Primary Care Provider, Family Practice] - As Needed Activity Restrictions/Additional Instructions: Follow-up with the intensive outpatient think it was from the list psychiatric care here at the hospital through [place]. Return to emergency department if you are feeling worse or suicidal. Print Language: Czech Disposition Disposition: Home, Self Care
[2025-03-02 16:29] LABS: Barbiturate Urine NEGATIVE (< 200 ng/mL); Benzodiazepine Urine NEGATIVE (< 200 ng/mL); PCP Urine NEGATIVE (< 25 ng/mL); THC Urine PRESUMPTIVE POSITIVE (< 50 ng/mL)
[2025-03-02 16:31] VITALS: BP 120/76; PULSE 74; RESP 14; O2SAT 100
[2025-03-02 16:57] VITALS: BP 120/76; PULSE 74; RESP 14; TEMP 36.6; O2SAT 100
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
--- NOTE | 2025-03-03 18:22 | CM.ED ---
Social work Per email handoff from Selam NAILS, LORENZO called patient to check in after patient received a safety plan yesterday in [facility] ED (ph: ). Patient stated having a good day, but feeling really frustrated with patient's due to patient's reportedly making comments like, you should be glad I was there or else you'd be hospitalized. Patient stated trying to use patient's safety plan when comments like this were made and patient stated that maybe being hospitalized would have been good for patient. LORENZO asked if patient attended patient's IOP appointment today at [facility]. Patient stated going as instructed by Selam NAILS, but [facility] stated the appointment was not until 03/04. Patient stated feeling confident in patient's ability to follow the safety plan as written and make the appointment tomorrow. Patient stated that patient intentionally did not write anything about patient's on the safety plan due to patient's not being helpful at times. Patient stated not needing anything else from LORENZO at this time and patient thanked LORENZO for the encouraging call. Geno Archer, CAUSTIC LIQUOR MAKER, MARKET GARDENER
== END 2025-03-02 16:58 | disposition home or self-care (01) ==
PROVIDERS: Emergency Provider Emergency Medicine; PCP Family Medicine; Visit Provider Emergency Medicine
DX: F31.9 Bipolar disorder, unspecified (principal); F41.9 Anxiety disorder, unspecified; Z87.891 Personal history of nicotine dependence; F98.8 Other specified behavioral and emotional disorders with onset usually occurring in childhood and adolescence; K21.9 Gastro-esophageal reflux disease without esophagitis; R45.851 Suicidal ideations
CPT/HCPCS: 80307; 99283